=== PATIENT | female | born 1970 | race Caucasian/White ===

== ENCOUNTER → 2016-09-06 | Outpatient (CLI) | payer OTHER ==
[2016-09-06 13:22] LABS: CHCM 32.6; HCT 41.1 % (34.0-46.0); HDW 2.28; HGB 13.9 gm/dL (11.4-16.0); MCH 30.2 pg (25.0-35.0); MCHC 33.7 g/dL (31.0-37.0); MCV 89.5 fL (80.0-100.0); Mean Platelet Volume 8.8; WBC 9.9 k/uL (3.8-10.6)
[2016-09-06 13:57] LABS: ALT 31 U/L (9-52); AST 21 U/L (14-36); Alkaline Phosphatase 92 U/L (38-126); Anion Gap 12 mmol/L; Blood Urea Nitrogen 13 mg/dL (7-17); C Reactive Protein 10.5 mg/L (<10.0); Calcium 9.5 mg/dL (8.4-10.2); Carbon Dioxide 25 mmol/L (22-30); Chloride 104 mmol/L (98-107); Cholesterol 200 mg/dL (<200); Glucose 93 mg/dL (74-99); HDL Cholesterol 63 mg/dL (40-60); Magnesium 1.9 mg/dL (1.6-2.3); Non-African American GFR(MDRD) >60 (>60 ml/min/1.73 sqM); Phosphorous 3.9 mg/dL (2.5-4.5); Potassium 5.1 mmol/L (3.5-5.1); Sodium 141 mmol/L (137-145); Total Bilirubin 0.5 mg/dL (0.2-1.3); Total Protein 7.2 g/dL (6.3-8.2); Triglycerides 112 mg/dL (<150)
[2016-09-06 18:36] LABS: Hemoglobin A1C 5.6 % (4.2-6.1)
== END | disposition home or self-care (01) ==
LOC: LABWHC1 12:59
PROVIDERS: ATTEND Internal Medicine Cardiovascular Disease
DX: Z00.00 Encounter for general adult medical examination without abnormal findings (principal); E78.5 Hyperlipidemia, unspecified
CPT/HCPCS: 36415; 80053; 80061; 83036; 83735; 84100; 84439; 84443; 84481; 85027; 86140

== ENCOUNTER → 2016-09-16 | Outpatient (CLI) | payer OTHER ==
--- NOTE | 2016-09-16 15:53 | US ---
EXAMINATION TYPE: US venous doppler duplex LE LT DATE OF EXAM: 09/16/2016 3:44 PM COMPARISON: NONE CLINICAL HISTORY: M79.662 Phlebitis, M79.605 Pain in Leg,. Left leg pain SIDE PERFORMED: Left TECHNIQUE: The lower extremity deep venous system is examined utilizing real time linear array sonog socorro with graded compression, doppler sonography and color-flow sonography. VESSELS IMAGED: External Iliac Vein (EIV) Common Femoral Vein Deep Femoral Vein Greater Saphenous Vein * Femoral Vein Popliteal Vein Small Saphenous Vein * Proximal Calf Veins (* superficial vessels) No popliteal fossa lesion was seen. Left Leg: Negative for DVT, please note PTV's imaged and appeared wnl Results called to Lucita at Dr's office at time of exam IMPRESSION: THIS EXAMINATION IS NEGATIVE FOR DVT WITHIN THE LEFT LEG.
== END ==
LOC: RADUSWWP 15:05
PROVIDERS: ATTEND Orthopaedic Surgery
DX: M79.662 Pain in left lower leg (principal); M79.605 Pain in left leg; M25.562 Pain in left knee; M17.12 Unilateral primary osteoarthritis, left knee

== ENCOUNTER → 2017-01-17 | Outpatient (CLI) | payer OTHER ==
--- NOTE | 2017-01-18 08:28 | MM ---
Reason for exam: screening (asymptomatic). Last mammogram was performed 1 year ago. History: Patient has history of other cancer at age 39 and is nulliparous. Family history of breast cancer in paternal aunt at age 60 and premenopausal breast cancer in paternal grandmother at age 40. Benign left mammotome panel of the left breast, November 16, 2011. Took hormonal contraceptives for 16 years 6 months beginning at age 19. Physical Findings: A clinical breast exam by your physician is recommended on an annual basis and results should be correlated with mammographic findings. MG 3D Screening Mammo W/Cad Bilateral CC and MLO view(s) were taken. Prior study comparison: January 05, 2016, bilateral MG 3d screening mammo w/cad. December 30, 2014, bilateral MG screening mammo w CAD. There are scattered fibroglandular densities. Focal asymmetry middle right breast on MLO view, 8.3cm from nipple. ASSESSMENT: Incomplete: need additional imaging evaluation, BI-RAD 0 RECOMMENDATION: Special view mammogram of the right breast. If lesion persists on supplemental views, image directed ultrasound is recommended. [facility] will attempt to contact patient to return for supplemental views and ultrasound if indicated.
== END | disposition home or self-care (01) ==
LOC: RADMAMWWP 07:58
PROVIDERS: ATTEND Obstetrics & Gynecology
DX: Z12.31 Encounter for screening mammogram for malignant neoplasm of breast (principal); Z80.3 Family history of malignant neoplasm of breast
CPT/HCPCS: 77063; G0202

== ENCOUNTER → 2017-01-31 | Outpatient (CLI) | payer OTHER ==
--- NOTE | 2017-02-01 07:07 | MM ---
Reason for exam: additional evaluation requested from abnormal screening. Last mammogram was performed less than 1 month ago. History: Patient has history of other cancer at age 39 and is nulliparous. Family history of breast cancer in paternal aunt at age 60 and premenopausal breast cancer in paternal grandmother at age 40. Benign left mammotome panel of the left breast, November 16, 2011. Took hormonal contraceptives for 16 years 6 months beginning at age 19. Physical Findings: Nurse did not find any significant physical abnormalities on exam. MG 3D Work Up W/Cad RT CC and MLO view(s) were taken of the right breast. Prior study comparison: January 17, 2017, bilateral MG 3d screening mammo w/cad. January 05, 2016, bilateral MG 3d screening mammo w/cad. The breast tissue is almost entirely fat. There is no discrete abnormality, including area of concern. These results were verbally communicated with the patient and result sheet given to the patient on 01/31/17. ASSESSMENT: Benign, BI-RAD 2 RECOMMENDATION: Routine screening mammogram of both breasts in 1 year.
== END | disposition home or self-care (01) ==
LOC: RADMAMWWP 08:56
PROVIDERS: ATTEND Obstetrics & Gynecology
DX: R92.8 Other abnormal and inconclusive findings on diagnostic imaging of breast (principal)
CPT/HCPCS: G0206; G0279

== ENCOUNTER 2017-02-06 18:20 | Emergency (ER) | payer OTHER ==
[2017-02-06 18:31] VITALS: BP 150/72; PULSE 84; RESP 17; TEMP 97
--- NOTE | 2017-02-06 19:39 | XR ---
Exam: Right knee complete. TECHNIQUE: 4 views right knee were obtained. HISTORY: Fall with medial knee pain. FINDINGS: No acute fracture or subluxation is identified. Marginal osteophyte formation is identified in the me dial compartment as well as arising from the superior aspect of the patella. There is no joint effusi on. Soft tissue structures are unremarkable. IMPRESSION: No acute abnormalities identified.
--- NOTE | 2017-02-06 19:52 | ED ---
Lower Extremity Injury HPI - General Chief Complaint: Extremity Injury, Lower Stated Complaint: IHS, fall Time Seen by Provider: 02/06/17 19:16 Source: patient, family Mode of arrival: ambulatory Limitations: physical limitation - History of Present Illness Initial Comments: 46-year-old female patient possessed emergency department today for evaluation of right knee pain. Patient states that she was at work today around 5:30 when she tripped on a mat and fell landing on her right knee. The patient states that she has had significant pain since and has had use crutches because it hurts to walk. Patient states that she did fall on her shoulder as well however she is able to move it without any difficulties and is not having pain. Patient denies hitting her head or losing consciousness. She denies any numbness or tingling to her lower leg. Denies previous injury to the leg. Patient denies any headache, neck pain, back pain, chest pain, shortness of breath, dizziness, weakness, abdominal pain, nausea, vomiting, or difficulties with bowel movements or urination. - Related Data Home Medications Medication Instructions Recorded Confirmed ALPRAZolam [Xanax] 0.5 mg PO BID PRN 08/19/14 02/28/16 Albuterol Inhaler [Ventolin 1 - 2 puff INHALATION Q6HR PRN 08/19/14 02/28/16 Inhaler] Cetirizine HCl [Zyrtec] 10 mg PO DAILY 08/19/14 02/28/16 EPINEPHrine (Auto Inject) [Epipen] 0.3 mg IM ONCE PRN 08/19/14 02/28/16 Ergocalciferol [Vitamin D2 50,000 unit PO Q7D 08/19/14 02/28/16 (DRISDOL)] Fluocinonide 0.05% [Lidex 0.05% 15 applic TOPICAL DAILY 08/19/14 02/28/16 cream] Montelukast [Singulair] 10 mg PO DAILY 08/19/14 02/28/16 Sertraline HCl [Zoloft] 50 mg PO DAILY 08/19/14 02/28/16 Vitamin B Complex 1 each PO DIRECTED 08/19/14 02/28/16 Previous Rx's Medication Instructions Recorded Dicyclomine HCl [Bentyl] 20 mg PO QID #30 tab 08/19/14 Ondansetron Odt [Zofran ODT] 4 mg PO Q8HR PRN #30 tab 08/19/14 Cephalexin [Keflex] 500 mg PO Q6HR #28 cap 02/28/16 Allergies Allergy/AdvReac Type Severity Reaction Status Date / Time bacitracin Allergy Unknown Verified 02/06/17 18:31 [From Neosporin ([id number])] bacitracin zinc Allergy Unknown Verified 02/06/17 18:31 [From Neosporin ([id number]-[id number])] neomycin sulfate Allergy Unknown Verified 02/06/17 18:31 [From Neosporin ([id number])] polymyxin B Allergy Unknown Verified 02/06/17 18:31 [From Neosporin ([id number])] tree nut [Nut] Allergy Anaphylaxis Verified 02/06/17 18:31 pseudoephedrine AdvReac Unknown Verified 02/06/17 18:31 Review of Systems ROS Statement: Those systems with pertinent positive or pertinent negative responses have been documented in the HPI. ROS Other: All systems not noted in ROS Statement are negative. Past Medical History Past Medical History: Asthma, Thyroid Disorder Additional Past Medical History / Comment(s): allergies, eczema, PSVT History of Any Multi-Drug Resistant Organisms: None Reported Additional Past Surgical History / Comment(s): bilateral knee arthroscopy, bilateral lasik eye surgery, Past Psychological History: No Psychological Hx Reported Smoking Status: Never smoker Past Alcohol Use History: Occasional Past Drug Use History: None Reported General Exam Limitations: physical limitation General appearance: alert, in no apparent distress Neck exam: Present: normal inspection, full ROM, other (Nontender, no step-off, no deformity to firm midline palpation of the posterior cervical spine. Full range of motion without pain or limitation.). Absent: tenderness, meningismus, lymphadenopathy Respiratory exam: Present: normal lung sounds bilaterally. Absent: respiratory distress, wheezes, rales, rhonchi, stridor Cardiovascular Exam: Present: regular rate, normal rhythm, normal heart sounds. Absent: systolic murmur, diastolic murmur, rubs, gallop, clicks GI/Abdominal exam: Present: soft, normal bowel sounds. Absent: distended, tenderness, guarding, rebound, rigid Extremities exam: Present: full ROM, tenderness (Over the medial and lateral right knee.), normal capillary refill, other (Right knee swelling noted. Ecchymosis to the medial right knee.). Absent: normal inspection, pedal edema, joint swelling, calf tenderness Back exam: Present: normal inspection, other (Nontender, no step-off, no deformity to firm midline palpation of the thoracic and lumbar vertebrae. Full range of motion without pain or limitation.) Neurological exam: Present: alert, oriented X3, CN II-XII intact Psychiatric exam: Present: normal affect, normal mood Skin exam: Present: warm, dry, intact, normal color. Absent: rash Course Vital Signs 02/06/17 18:24 Temperature 97.0 F L Pulse Rate 84 Respiratory 17 Rate Blood Pressure 150/72 O2 Sat by Pulse 98 Oximetry Medical Decision Making - Medical Decision Making 46 old female patient was sent for evaluation of right knee pain after a fall today. X-ray was obtained and showed no acute osseous abnormalities. Patient does have significant pain with walking so she will be placed in a knee immobilizer and instructed to follow-up with orthopedic physician for reevaluation. He is instructed to ice, rest, and elevate the extremity. Instructed sick IV Zofran and Tylenol for pain control. Patient instructed to follow up with her primary care physician for recheck in 1-2 days. Instructed to return here immediately for any new, worsening, or concerning symptoms. Patient verbalizes understanding and agrees with this plan. - Radiology Data Radiology results: report reviewed, image reviewed 4 views of the right knee were obtained and showed no fracture or subluxation. Marginal osteophyte formation is identified in the medial compartment as well as arising from the superior aspect of the patella. There is no joint effusion. Soft tissue structures are unremarkable. Impression by Dr. Lee shows no acute abnormalities. Disposition Clinical Impression: Right knee sprain Disposition: HOME SELF-CARE Condition: Good Instructions: Knee Sprain (ED), Contusion in Adults (ED) Additional Instructions: Rest, ice, elevate the extremity. Take Tylenol or Motrin for pain control. Wear knee immobilizer until follow-up with the orthopedic physician. Return here immediately for any new, worsening, or concerning symptoms. Referrals: Raquel Haas MD [Primary Care Provider] - 1-2 days Time of Disposition: 19:51
== END 2017-02-06 20:10 | disposition home or self-care (01) ==
LOC: EC 18:20
DX: S83.91XA Sprain of unspecified site of right knee, initial encounter (principal); J45.909 Unspecified asthma, uncomplicated; E07.9 Disorder of thyroid, unspecified; Z79.899 Other long term (current) drug therapy; Z88.1 Allergy status to other antibiotic agents; Z88.8 Allergy status to other drugs, medicaments and biological substances; Z91.018 Allergy to other foods; W01.0XXA Fall on same level from slipping, tripping and stumbling without subsequent striking against object, initial encounter; Y99.0 Civilian activity done for income or pay
CPT/HCPCS: 73562; 99283; L1830

== ENCOUNTER → 2017-02-08 | Outpatient (CLI) | payer OTHER ==
--- NOTE | 2017-02-08 14:31 | CT ---
EXAMINATION TYPE: CT knee RT wo con DATE OF EXAM: 02/08/2017 COMPARISON: Plain film 02/06/2017 HISTORY: Trauma and pain, M 25.561 CT DLP: 289 mGycm Automated exposure control for dose reduction was used. Helical acquisition through the right knee. Three-dimensional reconstructions performed on an [id number] workstation. FINDINGS: Osteoarthritic changes are again noted. There is marginal spurring in the medial compartment grade an d lateral, joint space loss medially and subchondral sclerosis. Spurring also present at the patellof emoral joint. There is a concentric area of low attenuation involving the soft tissues just medial to the medial femoral condyle which may represent joint effusion. Varicosities are noted incidentally. Difficult to exclude ligamentous disruption or meniscal tear. No fracture or dislocation. IMPRESSION: OSTEOARTHRITIS AND ADDITIONAL FINDINGS ABOVE. KNEE MRI WOULD BE OF INCREASED SENSITIVITY AND SPECIFIC ITY.
== END | disposition home or self-care (01) ==
LOC: RADCTMAIN 13:38
PROVIDERS: ATTEND Orthopaedic Surgery
DX: M17.11 Unilateral primary osteoarthritis, right knee (principal)

== ENCOUNTER 2017-07-14 11:21 | Emergency (ER) | payer OTHER ==
[2017-07-14 11:29] VITALS: RESP 18
--- NOTE | 2017-07-14 12:14 | ED ---
General Adult HPI - General Chief complaint: Recheck/Abnormal Lab/Rx Stated complaint: Chest pain Time Seen by Provider: 07/14/17 11:34 Source: patient, family, RN notes reviewed Mode of arrival: wheelchair Limitations: no limitations - History of Present Illness Initial comments: 46-year-old female presenting with a variety of complaints. Initial complaint was lightheadedness. Patient was at work, she felt lightheaded, thought it was either her blood pressure or her blood sugar. She did check her blood pressure was elevated in the 160s systolic. She normally has no hypertension or elevated blood pressure. She checked her blood sugar is in the mid 90s patient does admit that she did not eat breakfast today. She states she overall been not feeling right. She develops some mid scapular atraumatic back pain. This was minimal at the time my evaluation. Denied any central chest pain or pressure. No known history of coronary artery disease. She does have history of SVT, she denied palpitations. Also complains of some mild nausea associated with these symptoms. - Related Data Home Medications Medication Instructions Recorded Confirmed ALPRAZolam [Xanax] 0.5 mg PO BID PRN 08/19/14 07/14/17 Albuterol Inhaler [Ventolin 1 - 2 puff INHALATION RT-QID PRN 08/19/14 07/14/17 Inhaler] Cetirizine HCl [Zyrtec] 10 mg PO HS 08/19/14 07/14/17 EPINEPHrine (Auto Inject) [Epipen] 0.3 mg IM ONCE PRN 08/19/14 07/14/17 Ergocalciferol [Vitamin D2 50,000 unit PO WE 08/19/14 07/14/17 (DRISDOL)] Montelukast [Singulair] 10 mg PO HS 08/19/14 07/14/17 Sertraline HCl [Zoloft] 50 mg PO HS 08/19/14 07/14/17 Famotidine [Pepcid AC] 10 mg PO DAILY 07/14/17 07/14/17 Ibuprofen [Motrin Ib] 200 - 400 mg PO Q6H PRN 07/14/17 07/14/17 Levothyroxine Sodium [Synthroid] 25 mcg PO SUTUWETHSA 07/14/17 07/14/17 Levothyroxine Sodium [Synthroid] 50 mcg PO MOFR 07/14/17 07/14/17 Allergies Allergy/AdvReac Type Severity Reaction Status Date / Time bacitracin Allergy Rash/Hives Verified 07/14/17 12:20 [From Neosporin ([id number])] bacitracin zinc Allergy Rash/Hives Verified 07/14/17 12:20 [From Neosporin ([id number])] neomycin sulfate Allergy Rash/Hives Verified 07/14/17 12:20 [From Neosporin ([id number]-ryq-ooglp)] polymyxin B Allergy Rash/Hives Verified 07/14/17 12:20 [From Neosporin (hib-wnx-[id number])] tree nut [Nut] Allergy Anaphylaxis Verified 07/14/17 12:20 pseudoephedrine AdvReac Rapid Verified 07/14/17 12:20 Heart Rate Review of Systems ROS Statement: Those systems with pertinent positive or pertinent negative responses have been documented in the HPI. ROS Other: All systems not noted in ROS Statement are negative. Past Medical History Past Medical History: Asthma, Supraventricular Tachycardia (SVT), Thyroid Disorder Additional Past Medical History / Comment(s): allergies, eczema, PSVT History of Any Multi-Drug Resistant Organisms: None Reported Additional Past Surgical History / Comment(s): bilateral knee arthroscopy, bilateral lasik eye surgery, Past Psychological History: No Psychological Hx Reported Smoking Status: Never smoker Past Alcohol Use History: Occasional Past Drug Use History: None Reported General Exam Limitations: no limitations General appearance: alert, in no apparent distress Head exam: Present: atraumatic, normocephalic Eye exam: Present: normal appearance, PERRL ENT exam: Present: normal exam Neck exam: Present: normal inspection. Absent: tenderness, meningismus Respiratory exam: Present: normal lung sounds bilaterally. Absent: respiratory distress, wheezes Cardiovascular Exam: Present: regular rate, normal rhythm. Absent: rubs GI/Abdominal exam: Present: soft. Absent: distended, tenderness Extremities exam: Present: normal inspection, normal capillary refill. Absent: pedal edema Back exam: Present: normal inspection. Absent: full ROM Neurological exam: Present: alert, oriented X3, CN II-XII intact. Absent: motor sensory deficit Psychiatric exam: Present: normal affect, normal mood Skin exam: Present: warm, dry, intact. Absent: cyanosis, diaphoretic Course Vital Signs 07/14/17 07/14/17 07/14/17 11:27 12:41 14:06 Temperature 98 F Pulse Rate 83 86 81 Respiratory 18 18 18 Rate Blood Pressure 186/100 165/86 164/87 O2 Sat by Pulse 99 98 96 Oximetry - Reevaluation(s) Reevaluation #1: 07/14/17 12:13 1210, patient developed some changing back pain and chest tightness. Repeat EKG obtained. EKG Findings - EKG Comments: EKG Findings:: EKG shows normal sinus rhythm with sinus arrhythmia, ventricular rate 73, NC interval 140, castration 80, QTC 438, no ST segment elevation there is T-wave inversion in lead 3. Repeat EKG during worsening pain shows sinus rhythm ventricular rate 65, NC interval 126, QRS duration 80, QTc 418, no signs of acute ischemia. EKG obtained at 1211 Medical Decision Making - Medical Decision Making 46-year-old female presenting with chief complaint of not feeling well and mid thoracic back pain which was nontraumatic. Patient was concerned about elevated blood pressure. No vomiting, she did have some mild nausea. EKG is obtained, nonischemic. This is repeated one patient had worsening symptoms and it was unchanged. Laboratory studies revealed mild elevation in white blood cell count 12.5, hemoglobin stable at 14.6. Troponin and d-dimer are negative. Electrolytes within normal limits. Lipase is elevated, this is consistent with the patient's nausea and mid back pain. Ultrasound is obtained for concerns of gallstone pancreatitis, this is negative for acute cholecystitis, negative for gallstones within the gallbladder, common bile duct is not visualized. Patient is offered observation for GI consult. She prefers to be discharged home and will return with worsening symptoms. She will follow-up with her primary care physician on Monday for repeat x-ray testing. She was not a alcoholic, no history of recent alcohol use or abuse. She is not vomiting in the emergency department. She has no epigastric pain. She is informed that other causes of pancreatitis have not been evaluated, she did not receive CT. She will attention to her symptoms and return with any change or worsening symptoms. 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 - Lab Data Result diagrams: 07/14/17 12:34 07/14/17 12:34 Lab Results 07/14/17 07/14/17 07/14/17 Range/Units 12:26 12:34 12:34 WBC 12.5 H (3.8-10.6) k/uL RBC 5.15 (3.80-5.40) m/uL Hgb 14.6 (11.4-16.0) gm/dL Hct 48.2 H (34.0-46.0) % MCV 93.6 (80.0-100.0) fL MCH 28.3 (25.0-35.0) pg MCHC 30.2 L (31.0-37.0) g/dL RDW 12.8 (11.5-15.5) % Plt Count 275 (150-450) k/uL Neutrophils % 74 % Lymphocytes % 18 % Monocytes % 5 % Eosinophils % 2 % Basophils % 1 % Neutrophils # 9.2 H (1.3-7.7) k/uL Lymphocytes # 2.2 (1.0-4.8) k/uL Monocytes # 0.7 (0-1.0) k/uL Eosinophils # 0.2 (0-0.7) k/uL Basophils # 0.1 (0-0.2) k/uL PT (9.0-12.0) sec INR (<1.2) APTT (22.0-30.0) sec D-Dimer (<0.60) mg/L FEU Sodium (137-145) mmol/L Potassium (3.5-5.1) mmol/L Chloride (98-107) mmol/L Carbon Dioxide (22-30) mmol/L Anion Gap mmol/L BUN (7-17) mg/dL Creatinine (0.52-1.04) mg/dL Est GFR (MDRD) Af Amer (>60 ml/min/1.73 sqM) Est GFR (MDRD) Non-Af (>60 ml/min/1.73 sqM) Glucose (74-99) mg/dL Calcium (8.4-10.2) mg/dL Magnesium (1.6-2.3) mg/dL Total Bilirubin (0.2-1.3) mg/dL AST (14-36) U/L ALT (9-52) U/L Alkaline Phosphatase (38-126) U/L Total Creatine Kinase 107 (30-135) U/L CK-MB (CK-2) 1.1 (0.0-2.4) ng/mL CK-MB (CK-2) Rel Index 1.0 Troponin I <0.012 (0.000-0.034) ng/mL NT-Pro-B Natriuret Pep pg/mL Total Protein (6.3-8.2) g/dL Albumin (3.5-5.0) g/dL Lipase (23-300) U/L Urine HCG, Qual Not Detected (Not Detectd) 07/14/17 07/14/17 07/14/17 Range/Units 12:34 12:34 12:34 WBC (3.8-10.6) k/uL RBC (3.80-5.40) m/uL Hgb (11.4-16.0) gm/dL Hct (34.0-46.0) % MCV (80.0-100.0) fL MCH (25.0-35.0) pg MCHC (31.0-37.0) g/dL RDW (11.5-15.5) % Plt Count (150-450) k/uL Neutrophils % % Lymphocytes % % Monocytes % % Eosinophils % % Basophils % % Neutrophils # (1.3-7.7) k/uL Lymphocytes # (1.0-4.8) k/uL Monocytes # (0-1.0) k/uL Eosinophils # (0-0.7) k/uL Basophils # (0-0.2) k/uL PT 9.6 (9.0-12.0) sec INR 1.0 (<1.2) APTT 23.9 (22.0-30.0) sec D-Dimer 0.20 (<0.60) mg/L FEU Sodium 140 (137-145) mmol/L Potassium 4.2 (3.5-5.1) mmol/L Chloride 105 (98-107) mmol/L Carbon Dioxide 24 (22-30) mmol/L Anion Gap 11 mmol/L BUN 14 (7-17) mg/dL Creatinine 0.74 (0.52-1.04) mg/dL Est GFR (MDRD) Af Amer >60 (>60 ml/min/1.73 sqM) Est GFR (MDRD) Non-Af >60 (>60 ml/min/1.73 sqM) Glucose 104 H (74-99) mg/dL Calcium 10.0 (8.4-10.2) mg/dL Magnesium 2.1 (1.6-2.3) mg/dL Total Bilirubin 0.4 (0.2-1.3) mg/dL AST 21 (14-36) U/L ALT 28 (9-52) U/L Alkaline Phosphatase 112 (38-126) U/L Total Creatine Kinase (30-135) U/L CK-MB (CK-2) (0.0-2.4) ng/mL CK-MB (CK-2) Rel Index Troponin I (0.000-0.034) ng/mL NT-Pro-B Natriuret Pep 158 pg/mL Total Protein 7.9 (6.3-8.2) g/dL Albumin 4.6 (3.5-5.0) g/dL Lipase 728 H (23-300) U/L Urine HCG, Qual (Not Detectd) Disposition Clinical Impression: Pancreatitis Disposition: HOME SELF-CARE Condition: Good Instructions: Pancreatitis (ED) Referrals: Raquel Haas MD [Primary Care Provider] - 1-2 days Kesha Rodriguez MD [STAFF PHYSICIAN] - 1-2 days Time of Disposition: 15:24
[2017-07-14 12:54] LABS: Basophils # (A) 0.1 k/uL (0-0.2); Basophils % (A) 1 %; Eosinophils # (A) 0.2 k/uL (0-0.7); Eosinophils % (A) 2 %; HCT 48.2 % (34.0-46.0); HGB 14.6 gm/dL (11.4-16.0); Lymphocytes # (A) 2.2 k/uL (1.0-4.8); Lymphocytes % (A) 18 %; MCH 28.3 pg (25.0-35.0); MCHC 30.2 g/dL (31.0-37.0); MCV 93.6 fL (80.0-100.0); Mean Platelet Volume 9.2; Monocytes # (A) 0.7 k/uL (0-1.0); Monocytes % (A) 5 %; Neutrophils # (A) 9.2 k/uL (1.3-7.7); Neutrophils % (A) 74 %; Platelet Count 275 k/uL (150-450); RBC 5.15 m/uL (3.80-5.40); RDW 12.8 % (11.5-15.5); WBC 12.5 k/uL (3.8-10.6)
[2017-07-14 12:57] LABS: D-Dimer 0.2 mg/L FEU (<0.60)
--- NOTE | 2017-07-14 12:57 | XR ---
EXAMINATION TYPE: XR chest 2V DATE OF EXAM: 07/14/2017 COMPARISON: NONE HISTORY: Chest pain TECHNIQUE: Frontal and lateral views of the chest are obtained. FINDINGS: There is no focal air space opacity. No evidence for pneumothorax. No pleural effusion. The cardiac silhouette size is within normal limits. The osseous structures are grossly intact. IMPRESSION: 1. No acute cardiopulmonary process.
[2017-07-14 13:02] LABS: Partial Thromboplastin Time 23.9 sec (22.0-30.0); Prothrombin Time 9.6 sec (9.0-12.0)
[2017-07-14 13:06] LABS: ALT 28 U/L (9-52); AST 21 U/L (14-36); Albumin 4.6 g/dL (3.5-5.0); Alkaline Phosphatase 112 U/L (38-126); Anion Gap 11 mmol/L; Blood Urea Nitrogen 14 mg/dL (7-17); Carbon Dioxide 24 mmol/L (22-30); Chloride 105 mmol/L (98-107); Glucose 104 mg/dL (74-99); Lipase 728 U/L (23-300); Magnesium 2.1 mg/dL (1.6-2.3); Potassium 4.2 mmol/L (3.5-5.1); Sodium 140 mmol/L (137-145); Total Bilirubin 0.4 mg/dL (0.2-1.3); Total Protein 7.9 g/dL (6.3-8.2)
[2017-07-14 13:16] LABS: Creatine Kinase 107 U/L (30-135)
[2017-07-14 13:18] LABS: Creatine Kinase MB 1.1 ng/mL (0.0-2.4); Troponin I <0.012 ng/mL (0.000-0.034)
--- NOTE | 2017-07-14 14:52 | US ---
EXAMINATION TYPE: US gallbladder DATE OF EXAM: 07/14/2017 COMPARISON: NONE CLINICAL HISTORY: Pain. Pain, HTN, not NPO EXAM MEASUREMENTS: Liver Length: 15.1 cm Gallbladder Wall: 0.3 cm CHD: 0.3 cm Right Kidney: 9.3 x 4.7 x 5.4 cm Limited exam due to patient body habitus Pancreas: Appears echogenic Liver: wnl Gallbladder: wnl, fold seen Evidence for sonographic Wiley's sign: neg CBD: Obscured by overlying bowel gas CHD: wnl Right Kidney: wnl IMPRESSION: No significant abnormality appreciated.
[2017-07-14 15:46] VITALS: BP 129/87; PULSE 79; TEMP 97.8
== END 2017-07-14 15:40 | disposition home or self-care (01) ==
LOC: EC 11:21
DX: K85.90 Acute pancreatitis without necrosis or infection, unspecified (principal); J45.909 Unspecified asthma, uncomplicated; E07.9 Disorder of thyroid, unspecified; Z79.899 Other long term (current) drug therapy; Z88.1 Allergy status to other antibiotic agents; Z91.018 Allergy to other foods; Z88.8 Allergy status to other drugs, medicaments and biological substances
CPT/HCPCS: 36415; 71046; 76705; 80053; 81025; 82550; 82553; 83690; 83735; 83880; 84484; 85025; 85379; 85610; 85730; 87077; 87086; 87186; 93005; 99285

== ENCOUNTER → 2017-08-04 | Outpatient (CLI) | payer OTHER ==
[2017-08-04 11:07] LABS: HGB 13.6 gm/dL (11.4-16.0); MCH 28.5 pg (25.0-35.0); MCHC 31.5 g/dL (31.0-37.0); MCV 90.3 fL (80.0-100.0); Mean Platelet Volume 9.1; Platelet Count 267 k/uL (150-450); RBC 4.76 m/uL (3.80-5.40); RDW 13.1 % (11.5-15.5); WBC 7.2 k/uL (3.8-10.6)
[2017-08-04 11:28] LABS: ALT 20 U/L (9-52); AST 18 U/L (14-36); Alkaline Phosphatase 74 U/L (38-126); Anion Gap 6 mmol/L; Blood Urea Nitrogen 14 mg/dL (7-17); Calcium 9.4 mg/dL (8.4-10.2); Carbon Dioxide 27 mmol/L (22-30); Chloride 105 mmol/L (98-107); Cholesterol 186 mg/dL (<200); Glucose 95 mg/dL (74-99); HDL Cholesterol 64 mg/dL (40-60); LDL Cholesterol,Calculated 103 mg/dL (0-99); Phosphorus 3.1 mg/dL (2.5-4.5); Potassium 4.8 mmol/L (3.5-5.1); Sodium 138 mmol/L (137-145); Total Bilirubin 0.3 mg/dL (0.2-1.3); Triglycerides 94 mg/dL (<150)
[2017-08-04 11:43] LABS: T4, Free (Free Thyroxine) 1.07 ng/dL (0.78-2.19)
[2017-08-04 21:43] LABS: Hemoglobin A1C 5.4 % (4.0-6.0)
== END | disposition home or self-care (01) ==
LOC: LABWHC1 10:39
PROVIDERS: ATTEND Internal Medicine Cardiovascular Disease
DX: I10 Essential (primary) hypertension (principal); E78.5 Hyperlipidemia, unspecified; E03.9 Hypothyroidism, unspecified; E11.9 Type 2 diabetes mellitus without complications
CPT/HCPCS: 36415; 80053; 80061; 83036; 83735; 84100; 84439; 84443; 84481; 85027; 86141

== ENCOUNTER 2017-09-10 18:32 | Emergency (ER) | payer OTHER ==
[2017-09-10] MEDS ORDERED: SODIUM CHLORIDE 0.9% 1,000 ML IV STA (20:01)
[2017-09-10 20:51] LABS: Basophils % (A) 0 %; Eosinophils # (A) 0.2 k/uL (0-0.7); Eosinophils % (A) 1 %; HCT 43.1 % (34.0-46.0); HGB 14.3 gm/dL (11.4-16.0); Lymphocytes # (A) 2.8 k/uL (1.0-4.8); Lymphocytes % (A) 21 %; MCH 29.5 pg (25.0-35.0); MCHC 33.2 g/dL (31.0-37.0); MCV 88.7 fL (80.0-100.0); Monocytes # (A) 0.9 k/uL (0-1.0); Monocytes % (A) 7 %; Neutrophils # (A) 9.3 k/uL (1.3-7.7); Neutrophils % (A) 70 %; Platelet Count 245 k/uL (150-450); RBC 4.86 m/uL (3.80-5.40); RDW 13.1 % (11.5-15.5); WBC 13.4 k/uL (3.8-10.6)
[2017-09-10 21:05] LABS: Partial Thromboplastin Time 23.9 sec (22.0-30.0); Prothrombin Time 9.8 sec (9.0-12.0)
[2017-09-10 21:07] LABS: ALT 26 U/L (9-52); AST 21 U/L (14-36); Albumin 4.3 g/dL (3.5-5.0); Alkaline Phosphatase 98 U/L (38-126); Amylase 58 U/L (30-110); Anion Gap 15 mmol/L; Blood Urea Nitrogen 12 mg/dL (7-17); Calcium 10.1 mg/dL (8.4-10.2); Carbon Dioxide 22 mmol/L (22-30); Chloride 104 mmol/L (98-107); Glucose 95 mg/dL (74-99); Lipase 128 U/L (23-300); Potassium 4.3 mmol/L (3.5-5.1); Sodium 141 mmol/L (137-145); Total Bilirubin 0.6 mg/dL (0.2-1.3); Total Protein 7.6 g/dL (6.3-8.2)
[2017-09-10] MEDS ORDERED: RX INFO: IV CONTRAST WAS GIVEN 1 EACH MISC MISCELLANE PRN (21:19)
--- NOTE | 2017-09-10 22:03 | ED ---
Abdominal Pain HPI - General Chief Complaint: Abdominal Pain Stated Complaint: fever, abd pain, chills Time Seen by Provider: 09/10/17 20:01 Source: patient, RN notes reviewed Mode of arrival: ambulatory Limitations: no limitations - History of Present Illness Initial Comments: This a 47-year-old female presents emergency Department chief complaint abdominal pain. Patient states she's been having ongoing issues. She states she seen a here a few months ago by the time she got she was having a heart attack though they found her lipase to be elevated. Patient states that she followed up. Do a repeat ultrasound and a HIDA scan. Insurance would not approve other ultrasound slightly recommended CT. CT was scheduled for next Monday with pain worsened today. She states that she notices when she starts eating certain foods if symptoms worsen. Patient went to chills no fever. Denies any chest pain or shortness of breath. She's had some diarrhea at times. No dysuria hematuria. - Related Data Home Medications Medication Instructions Recorded Confirmed ALPRAZolam [Xanax] 0.5 mg PO BID PRN 08/19/14 07/14/17 Albuterol Inhaler [Ventolin 1 - 2 puff INHALATION RT-QID PRN 08/19/14 07/14/17 Inhaler] Cetirizine HCl [Zyrtec] 10 mg PO HS 08/19/14 07/14/17 EPINEPHrine (Auto Inject) [Epipen] 0.3 mg IM ONCE PRN 08/19/14 07/14/17 Ergocalciferol [Vitamin D2 50,000 unit PO WE 08/19/14 07/14/17 (DRISDOL)] Montelukast [Singulair] 10 mg PO HS 08/19/14 07/14/17 Sertraline HCl [Zoloft] 50 mg PO HS 08/19/14 07/14/17 Famotidine [Pepcid AC] 10 mg PO DAILY 07/14/17 07/14/17 Ibuprofen [Motrin Ib] 200 - 400 mg PO Q6H PRN 07/14/17 07/14/17 Levothyroxine Sodium [Synthroid] 25 mcg PO SUTUWETHSA 07/14/17 07/14/17 Levothyroxine Sodium [Synthroid] 50 mcg PO MOFR 02/09/18 02/09/18 Previous Rx's Medication Instructions Recorded Ondansetron Odt [Zofran Odt] 4 mg PO Q8HR PRN #10 tab 09/10/17 Allergies Allergy/AdvReac Type Severity Reaction Status Date / Time almond Allergy Anaphylaxis Verified 09/10/17 18:45 bacitracin Allergy Rash/Hives Verified 09/10/17 18:45 [From Neosporin ([id number])] bacitracin zinc Allergy Rash/Hives Verified 09/10/17 18:45 [From Neosporin ([id number])] neomycin sulfate Allergy Rash/Hives Verified 09/10/17 18:45 [From Neosporin ([id number])] peanut Allergy Unknown Verified 09/10/17 18:45 polymyxin B Allergy Rash/Hives Verified 09/10/17 18:45 [From Neosporin ([id number])] tree nut [Nut] Allergy Anaphylaxis Verified 09/10/17 18:45 pseudoephedrine AdvReac Rapid Verified 09/10/17 18:45 Heart Rate Review of Systems ROS Statement: Those systems with pertinent positive or pertinent negative responses have been documented in the HPI. ROS Other: All systems not noted in ROS Statement are negative. Past Medical History Past Medical History: Asthma, Supraventricular Tachycardia (SVT), Thyroid Disorder Additional Past Medical History / Comment(s): allergies, eczema, PSVT History of Any Multi-Drug Resistant Organisms: ESBL Date of last positivie culture/infection: 07/14/17 MDRO Source:: ESBL Past Surgical History: No Surgical Hx Reported Additional Past Surgical History / Comment(s): bilateral knee arthroscopy, bilateral lasik eye surgery, Past Psychological History: Anxiety Smoking Status: Never smoker Past Alcohol Use History: None Reported Past Drug Use History: None Reported General Exam Limitations: no limitations General appearance: alert, in no apparent distress Head exam: Present: atraumatic, normocephalic, normal inspection Respiratory exam: Present: normal lung sounds bilaterally. Absent: respiratory distress, wheezes, rales, rhonchi, stridor Cardiovascular Exam: Present: regular rate, normal rhythm, normal heart sounds. Absent: systolic murmur, diastolic murmur, rubs, gallop, clicks GI/Abdominal exam: Present: soft, tenderness (Right upper quadrant tenderness), normal bowel sounds. Absent: distended, guarding, rebound, rigid Back exam: Absent: CVA tenderness (R), CVA tenderness (L) Course Vital Signs 09/10/17 09/10/17 09/10/17 18:40 21:57 22:33 Temperature 98.6 F Pulse Rate 88 74 74 Respiratory 18 17 18 Rate Blood Pressure 153/73 132/74 120/58 O2 Sat by Pulse 97 96 96 Oximetry Medical Decision Making - Medical Decision Making 47-year-old female presented emergency department for recurrent abdominal pain, not feeling well. Patient most likely has a dysfunctional gallbladder. Patient lab work essentially unremarkable CT was performed no evidence of active quadrant disease. Patient is advised to follow-up with surgery will be discharged Zofran. Patient was offered pain medication and she declines. - Lab Data Result diagrams: 09/10/17 20:05 09/10/17 20:05 Lab Results 09/10/17 09/10/17 09/10/17 Range/Units 20:05 20:05 20:05 WBC 13.4 H (3.8-10.6) k/uL RBC 4.86 (3.80-5.40) m/uL Hgb 14.3 (11.4-16.0) gm/dL Hct 43.1 (34.0-46.0) % MCV 88.7 (80.0-100.0) fL MCH 29.5 (25.0-35.0) pg MCHC 33.2 (31.0-37.0) g/dL RDW 13.1 (11.5-15.5) % Plt Count 245 (150-450) k/uL Neutrophils % 70 % Lymphocytes % 21 % Monocytes % 7 % Eosinophils % 1 % Basophils % 0 % Neutrophils # 9.3 H (1.3-7.7) k/uL Lymphocytes # 2.8 (1.0-4.8) k/uL Monocytes # 0.9 (0-1.0) k/uL Eosinophils # 0.2 (0-0.7) k/uL Basophils # 0.0 (0-0.2) k/uL PT (9.0-12.0) sec INR (<1.2) APTT (22.0-30.0) sec Sodium 141 (137-145) mmol/L Potassium 4.3 (3.5-5.1) mmol/L Chloride 104 (98-107) mmol/L Carbon Dioxide 22 (22-30) mmol/L Anion Gap 15 mmol/L BUN 12 (7-17) mg/dL Creatinine 0.60 (0.52-1.04) mg/dL Est GFR (CKD-EPI)AfAm >90 (>60 ml/min/1.73 sqM) Est GFR (CKD-EPI)NonAf >90 (>60 ml/min/1.73 sqM) Glucose 95 (74-99) mg/dL Plasma Lactic Acid Ted 0.7 (0.7-2.0) mmol/L Calcium 10.1 (8.4-10.2) mg/dL Total Bilirubin 0.6 (0.2-1.3) mg/dL AST 21 (14-36) U/L ALT 26 (9-52) U/L Alkaline Phosphatase 98 (38-126) U/L Total Protein 7.6 (6.3-8.2) g/dL Albumin 4.3 (3.5-5.0) g/dL Amylase 58 (30-110) U/L Lipase 128 (23-300) U/L Urine Color Urine Appearance (Clear) Urine pH (5.0-8.0) Ur Specific [place] (1.001-1.035) Urine Protein (Negative) Urine Glucose (UA) (Negative) Urine Ketones (Negative) Urine Blood (Negative) Urine Nitrite (Negative) Urine Bilirubin (Negative) Urine Urobilinogen (<2.0) mg/dL Ur Leukocyte Esterase (Negative) Urine RBC (0-5) /hpf Urine WBC (0-5) /hpf Ur Squamous Epith Cells (0-4) /hpf Urine Bacteria (None) /hpf Urine HCG, Qual (Not Detectd) 09/10/17 09/10/17 09/10/17 Range/Units 20:05 22:28 22:30 WBC (3.8-10.6) k/uL RBC (3.80-5.40) m/uL Hgb (11.4-16.0) gm/dL Hct (34.0-46.0) % MCV (80.0-100.0) fL MCH (25.0-35.0) pg MCHC (31.0-37.0) g/dL RDW (11.5-15.5) % Plt Count (150-450) k/uL Neutrophils % % Lymphocytes % % Monocytes % % Eosinophils % % Basophils % % Neutrophils # (1.3-7.7) k/uL Lymphocytes # (1.0-4.8) k/uL Monocytes # (0-1.0) k/uL Eosinophils # (0-0.7) k/uL Basophils # (0-0.2) k/uL PT 9.8 (9.0-12.0) sec INR 1.0 (<1.2) APTT 23.9 (22.0-30.0) sec Sodium (137-145) mmol/L Potassium (3.5-5.1) mmol/L Chloride (98-107) mmol/L Carbon Dioxide (22-30) mmol/L Anion Gap mmol/L BUN (7-17) mg/dL Creatinine (0.52-1.04) mg/dL Est GFR (CKD-EPI)AfAm (>60 ml/min/1.73 sqM) Est GFR (CKD-EPI)NonAf (>60 ml/min/1.73 sqM) Glucose (74-99) mg/dL Plasma Lactic Acid Ted (0.7-2.0) mmol/L Calcium (8.4-10.2) mg/dL Total Bilirubin (0.2-1.3) mg/dL AST (14-36) U/L ALT (9-52) U/L Alkaline Phosphatase (38-126) U/L Total Protein (6.3-8.2) g/dL Albumin (3.5-5.0) g/dL Amylase (30-110) U/L Lipase (23-300) U/L Urine Color Light Yellow Urine Appearance Clear (Clear) Urine pH 5.0 (5.0-8.0) Ur Specific [place] 1.021 (1.001-1.035) Urine Protein Negative (Negative) Urine Glucose (UA) Negative (Negative) Urine Ketones Negative (Negative) Urine Blood Moderate H (Negative) Urine Nitrite Negative (Negative) Urine Bilirubin Negative (Negative) Urine Urobilinogen <2.0 (<2.0) mg/dL Ur Leukocyte Esterase Moderate H (Negative) Urine RBC 1 (0-5) /hpf Urine WBC 4 (0-5) /hpf Ur Squamous Epith Cells <1 (0-4) /hpf Urine Bacteria Rare H (None) /hpf Urine HCG, Qual Not Detected (Not Detectd) Disposition Clinical Impression: Abdominal pain, Gall bladder disease Disposition: HOME SELF-CARE Condition: Stable Instructions: Abdominal Pain (ED) Additional Instructions: Please return to the Emergency Department if symptoms worsen or any other concerns. Prescriptions: Ondansetron Odt [Zofran Odt] 4 mg PO Q8HR PRN #10 tab PRN Reason: Nausea Referrals: Raquel Haas MD [Primary Care Provider] - 1-2 days Samson Murillo DO [Doctor of Osteopathic Medicine] - 1-2 days Time of Disposition: 23:03
[2017-09-10 22:33] VITALS: RESP 18
--- NOTE | 2017-09-10 22:42 | CT ---
EXAMINATION TYPE: CT abdomen pelvis w con DATE OF EXAM: 09/10/2017 COMPARISON: NONE HISTORY: RUQ abd dwyer CT DLP: 2261.30 mGycm Automated exposure control for dose reduction was used. TECHNIQUE: Helical acquisition of images was performed from the lung bases through the pelvis. CONTRAST: Performed without Oral Contrast and with IV Contrast, patient injected with 100 mL of Isovue 300. FINDINGS: Lung bases are clear. There is no pleural effusion. Heart size is normal. There is no pericardial eff usion. Liver spleen pancreas gallbladder appear normal. Bile ducts are not dilated. There is no adrenal mass. Kidneys show satisfactory contrast opacification. There is no hydronephrosi s. Ureters are not dilated. There is no ascites. There is no sign of free air. Appendix appears michael l. I see no intestinal wall thickening. There are no dilated loops. Bladder distends smoothly. There is IUD noted in the uterus. There is a 6 x 4.5 cm cyst on the left adnexal region. There is a 3 x 2 cm cyst in the right adnexal region. There is no sign of a solid pelvic mass. I see no bony destructive process. IMPRESSION: BILATERAL OVARIAN CYSTS AND LARGER ON THE LEFT SIDE. NO SOLID PELVIC MASS SEEN. I DO NOT SEE A CAUSE FOR RIGHT UPPER QUADRANT PAIN. I DO NOT SEE EVIDENCE FOR PANCREATITIS OR CHOLECYSTITIS.
[2017-09-10 22:43] LABS: Appearance,Urine Clear (Clear); Bacteria,Urine Rare /hpf; Bilirubin,Urine Negative (Negative); Blood,Urine Moderate (Negative); Color,Urine Light Yellow; Glucose,Urine (UA) Negative (Negative); Ketones,Urine Negative (Negative); Leukocyte Esterase,Urine Moderate (Negative); Nitrite,Urine Negative (Negative); Protein,Urine Negative (Negative); RBC,Urine 1 /hpf (0-5); Specific Gravity,Urine 1.021 (1.001-1.035); Squamous Epithelial Cell,Urine <1 /hpf (0-4); Urobilinogen,Urine <2.0 mg/dL (<2.0); WBC,Urine 4 /hpf (0-5)
[2017-09-10] MEDS ORDERED: ONDANSETRON ODT 4 MG TAB PO STA (23:01)
[2017-09-10] MEDS ORDERED: ONDANSETRON 4 MG ODT STARTER PACK 2 TAB BTL PO STA (23:02)
[2017-09-10 23:08] VITALS: BP 115/76; PULSE 72; TEMP 98.2
== END 2017-09-10 23:19 | disposition home or self-care (01) ==
LOC: EC 18:32
DX: K82.9 Disease of gallbladder, unspecified (principal); E07.9 Disorder of thyroid, unspecified; F41.9 Anxiety disorder, unspecified; J45.909 Unspecified asthma, uncomplicated; Z88.1 Allergy status to other antibiotic agents; Z88.8 Allergy status to other drugs, medicaments and biological substances; Z91.010 Allergy to peanuts; Z91.018 Allergy to other foods; Z79.899 Other long term (current) drug therapy
CPT/HCPCS: 99284; 96360; 36415; 80053; 82150; 83605; 83690; 85025; 85610; 85730; 81001; 81025; 87040; 74177; S0119; Q9967

== ENCOUNTER → 2017-09-26 | Outpatient (CLI) | payer OTHER ==
--- NOTE | 2017-09-26 15:17 | NM ---
Nuclear medicine hepatobiliary scan. HISTORY: Pain. DOSAGE: The patient received 8 ounces of ensure plus and 4.88 mCi of Technetium 99m Choletec. FINDINGS: There is normal hepatic extraction. The gallbladder is seen by 30 minutes. There is bilia ry to bowel clearance by 30 minutes. Ejection fraction is 95%. IMPRESSION: 1. No evidence to suggest cholecystitis. Ejection fraction is 95% which can be seen with hyperdynamic gallbladder. Correlate clinically.
== END | disposition home or self-care (01) ==
LOC: RADNMMAIN 12:50
PROVIDERS: ATTEND Surgery
DX: R10.9 Unspecified abdominal pain (principal)
CPT/HCPCS: 78226; A9537

== ENCOUNTER 2018-01-12 07:43 | Day surgery (SDC) | payer OTHER ==
[2018-01-05 12:16] VITALS: BMI 42.7
[~2018-01-12 07:43] MED LIST: DEXAMETHASONE SOD PHOSPHATE 10 MG/ML 1 ML VIAL IV ONE; HEPARIN SODIUM,PORCINE 5,000 UNIT/ML 1 ML VIAL SQ ONE; LACTATED RINGERS 1,000 ML IV SCH; MIDAZOLAM 2 MG/2 ML VIAL IV PRN; ONDANSETRON 4 MG/2 ML VIAL IVP ONE; SCOPOLAMINE 1.5MG/72HR PATCH TRANSDERM ONE; fentaNYL (PF) 50 MCG/ML 2 ML AMP IV PRN
[2018-01-12] MEDS ORDERED: LIDOCAINE 1% 20 ML VIAL (10MG/ML) FOR IV START INTRADERMA ONE (08:14)
--- NOTE | 2018-01-12 08:38 | P.GSHP ---
History of Present Illness H&P Date: 01/12/18 Chief Complaint: Biliary hyperkinesia Patient today for elective cholecystectomy. Please refer to recent history and physical. Patient had an episode of pancreatitis and abdominal pain. Ultrasound however was normal. HIDA scan showed an elevated ejection fraction. Still has to modify her diet. She expresses pain. In terms increased with diet high in fat. Past Medical History Past Medical History: Asthma, Supraventricular Tachycardia (SVT), Thyroid Disorder Additional Past Medical History / Comment(s): allergies, eczema, PSVT, CHOLECYSTITIS. IUD INSERTION History of Any Multi-Drug Resistant Organisms: ESBL Date of last positivie culture/infection: 07/14/17 MDRO Source:: ESBL-URINE Past Surgical History: Orthopedic Surgery Additional Past Surgical History / Comment(s): bilateral knee arthroscopy, bilateral lasik eye surgery, Past Anesthesia/Blood Transfusion Reactions: Previous Problems w/ Anesthesia Additional Past Anesthesia/Blood Transfusion Reaction / Comment(s): SLOW TO COME OUT OF ANESTHESIA Smoking Status: Never smoker - Past Family History Mother Family Medical History: Pulmonary Embolus Medications and Allergies Home Medications Medication Instructions Recorded Confirmed Type ALPRAZolam [Xanax] 0.5 mg PO BID PRN 08/19/14 01/12/18 History Albuterol Inhaler [Ventolin 1 - 2 puff INHALATION RT-QID PRN 08/19/14 01/12/18 History Inhaler] Cetirizine HCl [Zyrtec] 10 mg PO HS 08/19/14 01/12/18 History EPINEPHrine (Auto Inject) [Epipen] 0.3 mg IM ONCE PRN 08/19/14 01/12/18 History Ergocalciferol [Vitamin D2 50,000 unit PO WE 08/19/14 01/12/18 History (DRISDOL)] Montelukast [Singulair] 10 mg PO HS 08/19/14 01/12/18 History Sertraline HCl [Zoloft] 50 mg PO HS 08/19/14 01/12/18 History Famotidine [Pepcid AC] 10 mg PO DAILY 07/14/17 01/12/18 History Ibuprofen [Motrin Ib] 200 - 400 mg PO Q6H PRN 07/14/17 01/12/18 History Levothyroxine Sodium [Synthroid] 25 mcg PO SUTUWETHSA 07/14/17 01/12/18 History Levothyroxine Sodium [Synthroid] 50 mcg PO MOFR 07/14/17 01/12/18 History Ondansetron Odt [Zofran Odt] 4 mg PO Q8HR PRN #10 tab 09/10/17 01/12/18 Rx Clobetasol Propionate [Temovate 1 applic TOPICAL DAILY PRN 01/05/18 01/12/18 History 0.05% Oint] Fluocinonide [Lidex .05%] 1 applic TOPICAL DAILY PRN 01/05/18 01/12/18 History Allergies Allergy/AdvReac Type Severity Reaction Status Date / Time almond Allergy Anaphylaxis Verified 01/12/18 08:08 neomycin sulfate Allergy Rash/Hives Verified 01/12/18 08:08 [From Neosporin ([id number])] peanut Allergy Anaphylaxis Verified 01/12/18 08:08 tree nut [Nut] Allergy Anaphylaxis Verified 01/12/18 08:08 pseudoephedrine AdvReac Rapid Verified 01/12/18 08:08 Heart Rate Surgical - Exam Vital Signs Temp Pulse Resp BP Pulse Ox 97.8 F 86 16 114/68 97 01/12/18 08:06 01/12/18 08:06 01/12/18 08:06 01/12/18 08:06 01/12/18 08:06 Physical exam: General: Well-developed, well-nourished HEENT: Normocephalic, sclerae nonicteric Abdomen: Nontender, nondistended Extremities: No edema Neuro: Alert and oriented Assessment and Plan (1) Biliary dyskinesia Narrative/Plan: Will proceed with left Cholecystectomy at this time. Risks of bleeding, infection, bile leak, bile duct injury, retained common bile duct stone, trocar injury, conversion to an open procedure, potential findings of other etiologies for her pain requiring additional procedures, hernia, anesthesia related complications were reviewed. The patient understands and wishes to proceed. Current Visit: Yes Status: Acute Code(s): K82.8 - OTHER SPECIFIED DISEASES OF GALLBLADDER SNOMED Code(s): 370996497
[2018-01-12] MEDS ORDERED: SUCCINYLCHOLINE CHLORIDE 100 MG/5 ML SYR IV ONE (09:05)
[2018-01-12] MEDS ORDERED: LIDOCAINE 1% INJ 10MG/ML (20 ML MDV) ONE (09:05)
[2018-01-12] MEDS ORDERED: diphenhydrAMINE 50 MG/ML 1 ML VIAL ONE (09:05)
[2018-01-12] MEDS ORDERED: ROCURONIUM BROMIDE 10 MG/ML 10 ML VIAL IV ONE (09:05)
[2018-01-12] MEDS ORDERED: KETOROLAC 30 MG/ML 1 ML VIAL ONE (09:05)
[2018-01-12] MEDS ORDERED: PROPOFOL 10 MG/ML 20 ML VIAL IV ONE (09:05)
[2018-01-12] MEDS ORDERED: fentaNYL (PF) 50 MCG/ML 2 ML AMP ONE (09:05)
[2018-01-12] MEDS ORDERED: MIDAZOLAM 2 MG/2 ML VIAL ONE (09:05)
[2018-01-12] MEDS: ceFAZolin IN SWFI 2 GM/20 ML SYRINGE IVP ONE ×2 (09:19→09:30)
[2018-01-12] MEDS ORDERED: BUPIVACAIN-EPI 0.5%-1:200,000 30 ML VIAL SQ ONE ×2 (09:24)
[2018-01-12] MEDS ORDERED: NALOXONE 0.4 MG/ML 1 ML VIAL IV PRN (10:12)
[2018-01-12] MEDS ORDERED: HYDROcodone/APAP 5-325MG 1 EACH TAB PO PRN (10:12)
--- NOTE | 2018-01-12 10:15 | P.OP ---
Date of Procedure: 01/12/18 Procedure(s) Performed: PREOPERATIVE DIAGNOSIS: Biliary hyperkinesia POSTOPERATIVE DIAGNOSIS: Same PROCEDURE: Laparoscopic cholecystectomy SURGEON: Reggie EBL: Minimal see anesthesia record ANESTHESIA: Gen. COMPLICATIONS: None OPERATIVE PROCEDURE: The patient was brought and placed on the operating room table in the supine position. The patient was placed under general anesthesia at that time. The abdomen was prepped and draped in the usual sterile fashion. A small vertical infraumbilical incision was made. The fascia was grasped with the Jorge forceps. The fascia was retracted anteriorly. The Veress needle was advanced into the peritoneal cavity. The saline drop test was unsuccessful. The patient had a very thick abdominal wall and I suspected we were still in the preperitoneal space. I decided to switch to an optical 5 mm trocar entrance. This occurred through one of our 5 mm incision sites. Insufflation took place to 15 mmHg. The umbilical site was inspected and there did not appear to be any penetration through the peritoneum from our Veress needle. A 5 mm trocar was placed there as well as an additional one in the right upper quadrant under visualization. A 12 mm trocar was advanced into the epigastric incision site. The gallbladder was retracted superiorly and laterally. The peritoneum overlying the infundibulum was bluntly dissected. The patient's cystic duct was visualized. The junction between the cystic duct common and hepatic duct was identified. The cystic duct was then divided after placement of 3 12 mm clips on the patient's side and one on the specimen side. The cystic artery was identified and clipped as well. A small vessel was seen along the gallbladder fossa and clipped as well. The gallbladder was then removed from the liver bed using electrocautery. The gallbladder was then removed from the epigastric trocar site with an Endo Catch bag. The gallbladder fossa was irrigated with saline. There was no evidence of any bleeding or biliary drainage seen. The trochars were then removed. The fascia at the 12 millimeter site was closed using a Willie-Breana 0 Vicryl stitch. The skin at all 4 sites was closed using a 4-0 Monocryl stitch. At the end of this procedure the sponge and needle counts were correct. DISPOSITION: Stable to the recovery room
[2018-01-12 10:23] VITALS: TEMP 97.9
[2018-01-12 11:35] VITALS: RESP 18
[2018-01-12 11:50] VITALS: BP 120/76; PULSE 59
== END 2018-01-12 12:23 | disposition home or self-care (01) ==
LOC: OR 07:43
PROVIDERS: ATTEND Surgery
DX: K81.1 Chronic cholecystitis (principal); J45.909 Unspecified asthma, uncomplicated; E07.9 Disorder of thyroid, unspecified; I47.1 Supraventricular tachycardia; F39 Unspecified mood [affective] disorder; Z91.018 Allergy to other foods; Z91.010 Allergy to peanuts; Z88.1 Allergy status to other antibiotic agents; Z88.8 Allergy status to other drugs, medicaments and biological substances; Z79.890 Hormone replacement therapy; Z79.899 Other long term (current) drug therapy; Z97.5 Presence of (intrauterine) contraceptive device
CPT/HCPCS: 47562; 81025; 88304; J2250; J1200; J1644; J1100; J2405; J2001; J3010; J1885; J0330; J2704; J0690

== ENCOUNTER → 2018-01-25 | Outpatient (CLI) | payer OTHER ==
--- NOTE | 2018-01-29 09:54 | MM ---
Reason for exam: screening (asymptomatic). Last mammogram was performed 1 year ago. History: Patient has history of other cancer at age 39 and is nulliparous. Family history of breast cancer in paternal aunt at age 60 and premenopausal breast cancer in paternal grandmother at age 40. Benign left mammotome panel of the left breast, November 16, 2011. Took hormonal contraceptives for 16 years 6 months beginning at age 19. Physical Findings: A clinical breast exam by your physician is recommended on an annual basis and results should be correlated with mammographic findings. MG 3D Screening Mammo W/Cad Bilateral CC and MLO view(s) were taken. Prior study comparison: January 31, 2017, right breast MG 3d work up w/cad RT. January 17, 2017, bilateral MG 3d screening mammo w/cad. The breast tissue is heterogeneously dense. This may lower the sensitivity of mammography. Previous mammotome biopsy in the left breast. There is no discrete abnormality. No significant changes when compared with prior studies. ASSESSMENT: Benign, BI-RAD 2 RECOMMENDATION: Routine screening mammogram of both breasts in 1 year.
== END | disposition home or self-care (01) ==
LOC: RADMAMWWP 14:32
PROVIDERS: ATTEND Obstetrics & Gynecology
DX: Z12.31 Encounter for screening mammogram for malignant neoplasm of breast (principal)
CPT/HCPCS: 77063; 77067

== ENCOUNTER → 2018-06-14 | Outpatient (CLI) | payer OTHER ==
[2018-06-14 12:20] LABS: Basophils # (A) 0.1 k/uL (0-0.2); Basophils % (A) 1 %; Eosinophils # (A) 0.3 k/uL (0-0.7); Eosinophils % (A) 3 %; HCT 40.6 % (34.0-46.0); Lymphocytes # (A) 2.3 k/uL (1.0-4.8); Lymphocytes % (A) 26 %; MCH 29.1 pg (25.0-35.0); MCHC 31.9 g/dL (31.0-37.0); MCV 91.4 fL (80.0-100.0); Mean Platelet Volume 8.7; Monocytes # (A) 0.6 k/uL (0-1.0); Monocytes % (A) 6 %; Neutrophils # (A) 5.4 k/uL (1.3-7.7); Neutrophils % (A) 62 %; Platelet Count 241 k/uL (150-450); RBC 4.45 m/uL (3.80-5.40); RDW 13.1 % (11.5-15.5); WBC 8.7 k/uL (3.8-10.6)
[2018-06-14 16:28] LABS: Albumin 3.9 g/dL (3.80-4.90); Albumin/Globulin Ratio 1.86 (1.20-2.10); Anion Gap 7.7 mmol/L (4.00-12.00); Calcium 8.9 mg/dL (8.7-10.3); Carbon Dioxide 25.3 mmol/L (21.6-31.8); Globulin 2.1 g/dL (1.6-3.3); LDL Cholesterol,Calculated 114.2 mg/dL (0.0-131.0); Potassium 4.8 mmol/L (3.5-5.5); Total Bilirubin 0.4 mg/dL (0.2-1.2); Uric Acid 4.6 mg/dL (2.9-7.7); VLDL Calculation 14.8 mg/dL (5.00-40.00)
[2018-06-14 16:35] LABS: T4, Free (Free Thyroxine) 1.1 ng/dL (0.80-1.80)
[2018-06-14 16:39] LABS: Vitamin D 25 Hydroxy 50.5 ng/mL (30.0-100.0)
[2018-06-14 16:43] LABS: C Reactive Protein, High Sens 11.13 mg/L (0.000-3.000)
[2018-06-14 20:13] LABS: Hemoglobin A1C 5.5 % (4.0-6.0)
== END ==
LOC: LABWHC1 10:39
PROVIDERS: ATTEND Internal Medicine Cardiovascular Disease
DX: E55.9 Vitamin D deficiency, unspecified (principal); I47.1 Supraventricular tachycardia; I10 Essential (primary) hypertension; R53.83 Other fatigue
CPT/HCPCS: 36415; 80053; 80061; 82150; 82306; 83036; 83695; 84439; 84443; 84481; 84550; 85025; 86141

== ENCOUNTER → 2018-06-22 | Outpatient (CLI) | payer OTHER ==
[2018-06-23 12:36] LABS: Immunoglobulin M 97.7 mg/dL (40.0-280.0)
[2018-06-25 14:50] LABS: APTT 46 Sec(s) (<43); APTT 1:1 Mix 41 Sec(s) (<43); Dilute Russell Viper Venom 43 Sec(s) (<44)
== END | disposition home or self-care (01) ==
LOC: LABWHC1 14:02
PROVIDERS: ATTEND Internal Medicine Cardiovascular Disease
DX: M19.90 Unspecified osteoarthritis, unspecified site (principal)
CPT/HCPCS: 36415; 82784; 85613; 85730; 85732; 86235

== ENCOUNTER → 2019-02-14 | Outpatient (CLI) | payer OTHER ==
--- NOTE | 2019-02-14 11:10 | MM ---
Reason for exam: screening (asymptomatic). Last mammogram was performed 1 year and 1 month ago. History: Patient has history of other cancer at age 39 and is nulliparous. Family history of breast cancer in paternal aunt at age 60 and premenopausal breast cancer in paternal grandmother at age 40. Benign left mammotome panel of the left breast, November 16, 2011. Took hormonal contraceptives for 16 years 6 months beginning at age 19. Physical Findings: A clinical breast exam by your physician is recommended on an annual basis and results should be correlated with mammographic findings. MG 3D Screening Mammo W/Cad Bilateral CC and MLO view(s) were taken. Prior study comparison: January 25, 2018, bilateral MG 3d screening mammo w/cad. January 31, 2017, right breast MG 3d work up w/cad RT. There are scattered fibroglandular densities. Finding: There is a 9 mm circumscribed oval mass located 7 cm from the nipple in the slight upper outer quadrant, anterior middle position of the left breast. Previous mammotome biopsy in the left breast. New finding since January 25, 2018 and January 31, 2017. ASSESSMENT: Incomplete: need additional imaging evaluation, BI-RAD 0 RECOMMENDATION: Ultrasound of the left breast. [facility] will attempt to contact patient to return for ultrasound.
== END | disposition home or self-care (01) ==
LOC: RADMAMWWP 07:50
PROVIDERS: ATTEND Obstetrics & Gynecology
DX: Z12.31 Encounter for screening mammogram for malignant neoplasm of breast (principal); Z80.3 Family history of malignant neoplasm of breast
CPT/HCPCS: 77063; 77067

== ENCOUNTER → 2019-02-26 | Outpatient (CLI) | payer OTHER ==
--- NOTE | 2019-02-27 08:22 | USB ---
Reason for exam: additional evaluation requested from abnormal screening. History: Patient has history of other cancer at age 39 and is nulliparous. Family history of breast cancer in paternal aunt at age 60 and premenopausal breast cancer in paternal grandmother at age 40. Benign left mammotome panel of the left breast, November 16, 2011. Took hormonal contraceptives for 16 years 6 months beginning at age 19. Physical Findings: Nurse Summary: all soft, nodular, movable (nurse ts). US Breast Workup Limited LT Left limited breast ultrasound including focal area of concern, retroareolar and axilla demonstrates a 6 x 3 x 8mm oval, cystic lesion at 3 o'clock corresponds with mammogram. These results were verbally communicated with the patient and result sheet given to the patient on 02/26/19. ASSESSMENT: Benign, BI-RAD 2 RECOMMENDATION: Return to routine screening mammogram schedule for both breasts.
== END | disposition home or self-care (01) ==
LOC: RADUSWWP 14:11
PROVIDERS: ATTEND Obstetrics & Gynecology
DX: R92.8 Other abnormal and inconclusive findings on diagnostic imaging of breast (principal)

== ENCOUNTER → 2019-12-17 | Outpatient (CLI) | payer BC ==
[2019-12-17 11:27] LABS: ALT 19 U/L (4-34); AST 21 U/L (14-36); African American GFR (CKD) >90 (>60 ml/min/1.73 sqM); Albumin 3.9 g/dL (3.5-5.0); Alkaline Phosphatase 87 U/L (38-126); Anion Gap 4 mmol/L; Blood Urea Nitrogen 13 mg/dL (7-17); Calcium 9.3 mg/dL (8.4-10.2); Carbon Dioxide 26 mmol/L (22-30); Chloride 107 mmol/L (98-107); Glucose 96 mg/dL (74-99); HCT 39.1 % (34.0-46.0); HGB 12.8 gm/dL (11.4-16.0); MCH 30.4 pg (25.0-35.0); MCHC 32.7 g/dL (31.0-37.0); Mean Platelet Volume 9.3; Non-African American GFR(CKD) >90 (>60 ml/min/1.73 sqM); Platelet Count 239 k/uL (150-450); Potassium 4.3 mmol/L (3.5-5.1); RBC 4.21 m/uL (3.80-5.40); RDW 13.4 % (11.5-15.5); Sodium 137 mmol/L (137-145); Total Bilirubin 0.5 mg/dL (0.2-1.3); Total Protein 6.3 g/dL (6.3-8.2); WBC 9.2 k/uL (3.8-10.6)
[2019-12-17 11:39] LABS: Appearance,Urine Clear (Clear); Bilirubin,Urine Negative (Negative); Blood,Urine Trace (Negative); Color,Urine Light Yellow; Glucose,Urine (UA) Negative (Negative); Ketones,Urine Negative (Negative); Leukocyte Esterase,Urine Trace (Negative); Mucus,Urine Rare /hpf; Nitrite,Urine Negative (Negative); PH, Urine 5.5 (5.0-8.0); Protein,Urine Negative (Negative); Specific Gravity,Urine 1.018 (1.001-1.035); Squamous Epithelial Cell,Urine 2 /hpf (0-4); Urobilinogen,Urine <2.0 mg/dL (<2.0); WBC,Urine 2 /hpf (0-5)
[2019-12-17 11:40] LABS: INR 0.9 (<1.2); Partial Thromboplastin Time 23.4 sec (22.0-30.0); Prothrombin Time 9.5 sec (9.0-12.0)
== END | disposition home or self-care (01) ==
LOC: LABPAT 10:19
PROVIDERS: ATTEND Orthopaedic Surgery
DX: Z01.818 Encounter for other preprocedural examination (principal); Z01.812 Encounter for preprocedural laboratory examination
CPT/HCPCS: 36415; 80053; 81001; 85027; 85610; 85730; 87070

== ENCOUNTER 2019-12-24 09:26 | Day surgery (SDC) | payer BC, OTHER ==
[2019-12-19 11:01] VITALS: BMI 47.0
[~2019-12-24 09:26] MED LIST changes: +ACETAMINOPHEN TAB 500 MG TAB ONE; +ACETAMINOPHEN TAB 500 MG TAB PO ONE; -DEXAMETHASONE SOD PHOSPHATE 10 MG/ML 1 ML VIAL IV ONE; +GABAPENTIN 300 MG CAP PO ONE; -HEPARIN SODIUM,PORCINE 5,000 UNIT/ML 1 ML VIAL SQ ONE; +HYDROmorphone 0.5 MG/0.5 ML SYRINGE IVP PRN; -LACTATED RINGERS 1,000 ML IV SCH; +LIDOCAINE 1% (10MG/ML) FOR IV START INTRADERMA PRN; +MELOXICAM 7.5 MG TAB PO ONE; -MIDAZOLAM 2 MG/2 ML VIAL IV PRN; +ONDANSETRON 4 MG/2 ML VIAL ONE; +ROPIVACAINE 246.25 MG, EPINEPHrine 0.5 MG, KETOROLAC 30 MG, cloNIDine HCL/PF 80 MCG, WA... MISCELLANE ONE; -SCOPOLAMINE 1.5MG/72HR PATCH TRANSDERM ONE; +TRANEXAMIC ACID 1,000 MG in SODIUM CHLORIDE 0.9% 100 ML IVPB ONE; -fentaNYL (PF) 50 MCG/ML 2 ML AMP IV PRN
[2019-12-24] MEDS: LACTATED RINGERS 1,000 ML IV SCH (09:58)
[2019-12-24] MEDS ORDERED: MIDAZOLAM 2 MG/2 ML VIAL IV ONE (10:03)
[2019-12-24] MEDS ORDERED: ROPIVACAINE 0.2%-NS ON-Q PUMP 1,090 MG, EMPTY PAIN BALL 1 EACH MISCELLANE PRN (10:25)
--- NOTE | 2019-12-24 10:27 | P.ANPRN ---
Procedure Note - Anesthesia - Nerve Block Performed Left Adductor Canal Time Out Performed: Yes (10:01) Date of Procedure: 12/24/19 Procedure Start Time: :02 Procedure Stop Time: 10:16 Location of Patient: PreOp Indication: Acute Post-Operative Pain, Requested by Surgeon (Dr Adarsh Dyson) Sedation Type: Sedate with meaningful contact maintained Preparation: Sterile Prep, Sterile Dressing Position: Supine Catheter: Indwelling Needle Types: Pajunk Needle Gauge: 21 Ultrasound used to visualize needle placement: Yes Ultrasound used to observe medication spread: Yes Injectate: 0.5% Ropivacaine (see comment for volume) (20cc) Blood Aspirated: No Pain Paresthesia on Injection Noted: No Resistance on Injection: Normal Image Stored and Saved: Yes Events: Uneventful and Well Tolerated
[2019-12-24] MEDS ORDERED: bisacodyL 10 MG SUPP RECTAL PRN (11:19)
[2019-12-24] MEDS ORDERED: HYDROmorphone 1 MG/ML 1 ML SYRINGE IVP PRN (11:19)
[2019-12-24] MEDS ORDERED: NA PHOS,M-B/NA PHOS,DI-BA 133 ML ENEMA RECTAL PRN (11:19)
[2019-12-24] MEDS ORDERED: hydrOXYzine pamoate 25 MG CAP PO PRN (11:19)
[2019-12-24] MEDS ORDERED: MAGNESIUM HYDROXIDE 2,400 MG/10 ML CUP PO PRN (11:19)
[2019-12-24] MEDS ORDERED: diazePAM 5 MG TAB PO PRN (11:19)
[2019-12-24] MEDS ORDERED: NALOXONE 0.4 MG/ML 1 ML VIAL IV PRN (11:19)
[2019-12-24] MEDS ORDERED: HYDROcodone/APAP 5-325MG 1 EACH TAB PO PRN (11:19)
[2019-12-24] MEDS ORDERED: HYDROmorphone 0.5 MG/0.5 ML SYRINGE IVP PRN ×2 (11:19)
[2019-12-24] MEDS ORDERED: ONDANSETRON 4 MG/2 ML VIAL IVP PRN (11:19)
[2019-12-24] MEDS ORDERED: PROPOFOL 10 MG/ML 20 ML VIAL IV ONE (11:27)
[2019-12-24] MEDS ORDERED: fentaNYL (PF) 50 MCG/ML 2 ML AMP ONE (11:27)
[2019-12-24] MEDS ORDERED: MIDAZOLAM 2 MG/2 ML VIAL ONE (11:27)
[2019-12-24] MEDS ORDERED: ceFAZolin 3,000 MG in SODIUM CHLORIDE 0.9% IRRIGATIO 3,000 ML IRRIGATION ONE (11:32)
[2019-12-24] MEDS ORDERED: LACTATED RINGERS 1,000 ML IV ONE (12:21)
--- NOTE | 2019-12-24 12:57 | P.OP ---
Date of Procedure: 12/24/19 Preoperative Diagnosis: Severe osteoarthritis left knee Postoperative Diagnosis: Severe osteoarthritis left knee Procedure(s) Performed: Left total knee arthroplasty utilizing Visionaire patient specific guides Implants: Arshad and Nephew Cruciate Retaining Journey II CR Oxinium Femoral Component size 3, left Arshad & Nephew Journey Nonporous Tibial Baseplate size 2, left Arshad & Nephew Journey II Deep Dished, XLPE Articular Insert, 9 mm, size 1-2 Arshad & Nephew Charlotte II Resurfacing Patellar Component, Oval, 29 mm All components were cemented using Palacose R bone cement. Visionaire patient specific guides The articulation is Oxinium on polyethylene. Anesthesia: spinal Surgeon: Adarsh Dyson Slab Conditioner Supervisor #1: [place] Steele Estimated Blood Loss (ml): 25 Pathology: other (Bone and cartilage) Condition: stable Disposition: PACU Indications for Procedure: After failure of conservative treatment we discussed the surgical and nonsurgical treatment options at length. Patient wishes to proceed with a total knee arthroplasty. Complications specific to this procedure were discussed at length, including but not limited to infection, bleeding, stiffness, and nerve injury. Covid-19 was also discussed at length with the patient, and they are aware of the current policies and procedures. The patient was given the option of delaying surgery, but they elect to proceed knowing these risks. Patient is aware of all these complications and informed consent was obtained Operative Findings: The operative findings are consistent with severe osteoarthritis of the left knee Description of Procedure: Patient was seen in the preoperative area consent was reviewed and operative site was marked with a skin marker. An adductor canal pain catheter was placed by anesthesia in the preoperative area. Patient was then brought to the operating room and given preoperative antibiotics intravenously. A spinal anesthetic was administered by the anesthesia department. A tourniquet was placed on the upper thigh and the lower extremity was prepped and draped in usual sterile fashion. A gram of transexamic acid was given. A universal timeout was then performed which confirmed the patient's name, surgical site, ALLERGIES, and consent. The lower extremity was then exsanguinated and tourniquet was inflated to 250 mmHg. A standard and anterior midline approach to the knee was performed. The skin and subcutaneous tissue was dissected down to the patellar tendon. A medial parapatellar arthrotomy was then performed. The knee was then extended, the patellar was everted, and the knee was again flexed. Anterior horns of both menisci were excised, and a release was performed to the posterior medial aspect of the knee. On gross visual inspection, there was complete loss of articular cartilage in the medial and patellofemoral joint spaces. There was also significant cartilage damage in the lateral compartment. There were multiple periarticular osteophytes. The patient specific guide was placed on the distal femur, and pinned in place. Using the patient specific guide, the distal femoral cut was performed. The cutting block was then removed and the cut was checked for flatness. The appropriate 5-in-1 cutting block was then pinned in place through the holes that were drilled through the patient specific guide. The anterior condyles were cut without notching. The posterior and chamfer cuts were performed while protecting the collateral ligaments. The cutting block was then removed. Attention was then directed to the tibia. The remaining ACL was removed with a Ronguer, and the tibia was then gently subluxed forward with a large bent knee retractor. Any remaining menisci was excised. The posterior lateral corner was cauterized in order to cauterize the lateral geniculate artery. The patient specific guide for the tibia was then placed and was held in place with pins. Pinholes were then placed for rotation of the tibial component as well. Proximal tibia was then cut and sized. Next trials were then placed with the appropriate-sized insert. The knee was able to fully extend and flex to 130 and was stable throughout all range of motion. The knee was then extended, patella everted. Patella was then measured, and then using an osteotomy guide, the patella was cut at the appropriate level. The patella was then measured and drilled and the patella trial was then placed. The knee was then taken through range of motion with the patella trial and the patella tracked normally. The knee was then extended patella trial was then removed and the patella was everted. Knee was then flexed and lug holes were drilled through the femoral trial and the femoral trial was then removed. The tibial was then exposed, and the tibial broach guide was then pinned in place after it was set for the appropriate rotation to allow for the most coverage without overhang. The tibia was then reamed and broached. The cut surfaces of bone were then irrigated with pulsatile lavage. The posterior structures were injected with the ropivacaine solution. The knee was also irrigated with Irrisept solution. The components were then opened, the cement was mixed, and the components were then cemented in place. The cement was allowed to harden with the knee in full extension. While the cement was hardening, the remaining soft tissues were then injected with a ropivacaine solution, which consisted of 246.25 mg of ropivacaine, 0.5 mg of epinephrine, 30 mg of Toradol, 80 g of clonidine, and 48.45 mL of sterile water, for a total of 100 mL of fluid injected. After the cemented hardened. The tourniquet was released, and hemostasis was obtained. A second gram of transexamic acid was given. The knee was again irrigated. The knee was again taken through range of motion and found to be stable throughout all range of motion of 0-130, and the patella tracked normally. The fascia was then closed with #2 strata fix suture. The subcutaneous tissue was closed with 3-0 Vicryl and 3-0 strata fix. Dermabond glue was used for the skin and placed with the knee in flexion. The patient was placed in a sterile silver dressing. Patient was then transferred to recovery room in stable condition. The sales assistant DAT Miller was required due the complexity surgery and the need for a skilled surgical elastic knitter hand frame. She assisted in positioning, draping, retraction, and closure of the wound.
--- NOTE | 2019-12-24 14:00 | XR ---
EXAMINATION TYPE: XR knee limited LT DATE OF EXAM: 12/24/2019 COMPARISON: NONE HISTORY: 49-year-old female evaluation for postoperative abnormality and alignment TECHNIQUE: 2 views FINDINGS: Images show placement of total knee arthroplasty. Both distal femoral and proximal tibial components of prosthesis appear well seated without periprosthetic fracture. Alignment grossly anatomic. Scatter ed soft tissue air and intra-articular air related to recent operation. IMPRESSION: Uncomplicated postoperative appearance left total knee arthroplasty.
[2019-12-24] MEDS ORDERED: NON FORMULARY DRUG (Epinephrine (Auto Inject) 0.3 MG) IM PRN (18:19)
[2019-12-24] MEDS ORDERED: ALPRAZolam 0.5 MG TAB PO PRN (18:19)
[2019-12-24] MEDS: SODIUM CHLORIDE 0.9% 1,000 ML IV SCH (19:33)
[2019-12-24] MEDS: ASPIRIN 325 MG TAB PO SCH (20:31)
[2019-12-24] MEDS: HYDROcodone/APAP 5-325MG 1 EACH TAB PO PRN (20:32)
[2019-12-24] MEDS ORDERED: MONTELUKAST 10 MG TAB PO SCH (21:00)
[2019-12-24] MEDS ORDERED: CHOLECALCIFEROL 1,000 UNIT TAB PO SCH (21:00)
[2019-12-24] MEDS ORDERED: LORATADINE 10 MG TAB PO SCH (21:00)
[2019-12-24] MEDS ORDERED: SENNOSIDES-DOCUSATE SODIUM 1 EACH TAB PO SCH (21:00)
[2019-12-24] MEDS ORDERED: SERTRALINE 100 MG TAB PO SCH (21:00)
[2019-12-24] MEDS ORDERED: CALCIUM CARBONATE 500 MG CHEWABLE PO PRN (22:00)
[2019-12-25] MEDS ORDERED: ALBUTEROL NEBULIZED 2.5 MG/3 ML INHALATION PRN
[2019-12-25] MEDS: SODIUM CHLORIDE 0.9% 1,000 ML IV SCH (01:06)
[2019-12-25] MEDS: LACTATED RINGERS 1,000 ML IV SCH (03:01)
--- NOTE | 2019-12-25 03:11 | CONS ---
CONSULTATION DATE OF SERVICE: 12/24/2019 REASON FOR CONSULTATION: Advice regarding asthma and multiple other medical issues requested by Dr. yDson. HISTORY OF PRESENT ILLNESS: This 49-year-old woman with a past medical history of multiple medical issues including history of asthma, GERD, DJD, history of sleep apnea, SVT, being followed Dr. Haas in the outpatient setting underwent left total knee arthroplasty by Dr. Dyson. The patient tolerated the procedure well. Patient is being closely monitored. Patient is complaining of some pain. There is no history of fever or rigors. No history of headache, loss consciousness, chest pain or palpitations. PAST MEDICAL HISTORY: Asthma, DJD, pneumonia, SVT, history of ESBL. MEDICATIONS: The home medications are: Zoloft, Singulair, Synthroid, Motrin, Breo Ellipta, Drisdol, EpiPen, vitamin D3, Zyrtec, Tums, Ventolin, Xanax. Doses are reviewed. ALLERGIES: ALMOND, LATEX, NEOMYCIN, PEANUTS, TREE NUTS, SUDAFED and NUTS. FAMILY HISTORY: History of deep vein thrombosis, pulmonary embolism in the family. SOCIAL HISTORY: No history of smoking. Occasional alcohol. REVIEW OF SYSTEMS: ENT: No diminished hearing or diminished vision. CARDIOVASCULAR SYSTEM: No angina. RESPIRATORY SYSTEM: No cough. GI: As mentioned earlier. : No dysuria. NERVOUS SYSTEM: No numbness or weakness. ALLERGY/IMMUNOLOGY: Asthma. MUSCULOSKELETAL: As mentioned earlier. HEMATOLOGY: No history of anemia. ENDOCRINE: Hypothyroidism. CONSTITUTIONAL: As mentioned earlier. DERMATOLOGY: Negative. RHEUMATOLOGY: Negative. PSYCHIATRY: As mentioned earlier. PHYSICAL EXAMINATION: Patient is alert and oriented x3. Pulse is 71, blood pressure 121/73, respiration 20, temperature 98.1, pulse ox 97% on room air. HEENT: Conjunctivae normal. Oral mucosa moist. NECK: No jugular venous distention. No carotid bruit. No lymph node enlargement. CARDIOVASCULAR: S1 S2 muffled. RESPIRATORY: Breath sounds diminished at the bases. No rhonchi, no crackles. ABDOMEN: Soft, nontender. No mass palpable. LEGS: Status post knee arthroplasty. NERVOUS SYSTEM: Higher functions as mentioned. Moves all 4 limbs. No focal motor or sensory deficits. LYMPHATICS: No lymphadenopathy of the neck, axillae or groin. SKIN: No ulcer, rash or bleeding. JOINTS: No active deforming arthropathy. LABS: The previous labs are available in the chart showed lupus anticoagulant. Otherwise, basically negative labs. ASSESSMENT: 1. Status post left total knee arthroplasty. 2. Asthma. 3. Gastroesophageal reflux disease. 4. Degenerative joint disease. 5. Pneumonia. 6. Sleep apnea. 7. Supraventricular tachycardia. 8. Eczema. 9. History of hiatal hernia. 10.History of gastric bypass. 11.History of pancreatitis. 12.History of hypothyroidism. 13.History of ESBL. 14.Family history of deep vein thrombosis. 15.Anxiety. 16.Lupus anticoagulant positive. 17.Obesity with body mass index of 46.8. 18.FULL CODE. RECOMMENDATIONS AND DISCUSSION: This 49-year-old woman presented after surgery. At this time I recommend to continue the current medications, continue symptomatic treatment. Resume the home medications. I would also recommend a course of Xarelto as a DVT prophylaxis because of the strong family history. Otherwise, we will follow the patient closely with you. Thank you Dr. Dyson for letting us participate in the care of this patient. The patient may be asked to follow up with Dr. Haas closely after discharge. MMODL / IJN: [id number] /
[2019-12-25] MEDS: HYDROcodone/APAP 5-325MG 1 EACH TAB PO PRN (05:09)
[2019-12-25] MEDS ORDERED: LEVOTHYROXINE 50 MCG TAB PO SCH (06:30)
[2019-12-25 07:00] VITALS: BP 122/69; PULSE 85; RESP 18; TEMP 99.1
[2019-12-25] MEDS: ASPIRIN 325 MG TAB PO SCH (07:43)
[2019-12-25] MEDS ORDERED: SYMBICORT 160-4.5 MCG INHALER INHALATION SCH (08:00)
[2019-12-25 08:45] LABS: Basophils # (A) 0.1 k/uL (0-0.2); Basophils % (A) 1 %; Eosinophils # (A) 0.1 k/uL (0-0.7); Eosinophils % (A) 1 %; HCT 36.1 % (34.0-46.0); HGB 11.1 gm/dL (11.4-16.0); Lymphocytes # (A) 1.4 k/uL (1.0-4.8); Lymphocytes % (A) 12 %; MCH 29.2 pg (25.0-35.0); MCHC 30.7 g/dL (31.0-37.0); Mean Platelet Volume 9.8; Monocytes # (A) 0.9 k/uL (0-1.0); Monocytes % (A) 8 %; Neutrophils # (A) 8.9 k/uL (1.3-7.7); Neutrophils % (A) 78 %; Platelet Count 210 k/uL (150-450); RDW 13.1 % (11.5-15.5); WBC 11.4 k/uL (3.8-10.6)
[2019-12-25] MEDS ORDERED: ERGOCALCIFEROL 50,000 UNIT CAP PO SCH (09:00)
[2019-12-25] MEDS ORDERED: MELOXICAM 7.5 MG TAB PO SCH (09:00)
--- NOTE | 2019-12-25 09:30 | P.DS ---
Providers Expected date of discharge: 12/25/19 Attending physician: Adarsh Dyson Consults: 12/24/19 11:19 Consult Physician Routine Consulting Provider: Liv Garcia Consult Reason/Comments: medical management Do you want consulting provider notified?: Yes Primary care physician: Raquel Haas - Discharge Diagnosis(es) (1) S/P total knee arthroplasty Current Visit: Yes Status: Acute (2) Osteoarthritis of left knee Current Visit: Yes Status: Acute Hospital Course: This is a 49-year-old female with known history of degenerative arthritis of the with left knee. The patient presents for evaluation. After discussion and consideration patient elects to proceed with total knee arthroplasty. The patient is seen preoperatively by Dr. Dyson and medically cleared for surgery by their primary care physician. Patient is admitted to [facility] on 12/24/2019 for total knee arthroplasty. The procedures performed without complication or sequelae. The patient is doing well postoperatively. Labs and vital signs are stable on day of discharge. On day of discharge patient's knee incision is healing well. There is minimal erythema. There is no drainage noted at this time. There is minimal soft tissue swelling to the knee. Patient has full foot and ankle motion without difficulty or pain. Calf is soft and nontender to palpation. Neurovascular status to the left lower extremity is intact. Patient is discharged home in go od condition. Opioid start talking form is reviewed and signed at patient bedside. Please see med rec for accurate list of home medications. Plan - Discharge Summary Discharge Rx Participant: No New Discharge Prescriptions: New Aspirin 325 mg PO BID #60 tab HYDROcodone/APAP 5-325MG [Bondurant 5-325] 1 - 2 tab PO Q6HR PRN #48 tab PRN Reason: Pain Sennosides [Senokot] 2 tab PO DAILY PRN #60 tablet PRN Reason: Constipation Ondansetron Odt [Zofran Odt] 1 - 2 tab PO Q8HR PRN #18 tab PRN Reason: Nausea No Action ALPRAZolam [Xanax] 0.5 mg PO BID PRN PRN Reason: Anxiety EPINEPHrine (Auto Inject) [Epipen] 0.3 mg IM ONCE PRN PRN Reason: Anaphylaxis Albuterol Inhaler (Mhu) [Ventolin Inhaler] 1 - 2 puff INHALATION RT-QID PRN PRN Reason: Shortness Of Breath Montelukast [Singulair] 10 mg PO HS Ergocalciferol [Vitamin D2 (DRISDOL)] 50,000 unit PO WE Cetirizine HCl [Zyrtec] 10 mg PO HS Ibuprofen [Motrin Ib] 200 - 400 mg PO Q6H PRN PRN Reason: Pain Levothyroxine Sodium [Synthroid] 25 mcg PO DIRECTED Levothyroxine Sodium [Synthroid] 50 mcg PO DIRECTED Calcium Carbonate [Tums] 750 mg PO DIRECTED PRN PRN Reason: Heartburn Cholecalciferol (Vitamin D3) [Vitamin D3] 1,000 unit PO HS Fluticasone/Vilanterol [Breo Ellipta 200-25 Mcg INH] 1 inhalation INHALATION QAM Sertraline [Zoloft] 100 mg PO HS Discharge Medication List ALPRAZolam [Xanax] 0.5 mg PO BID PRN 08/19/14 [History] Albuterol Inhaler (Mhu) [Ventolin Inhaler] 1 - 2 puff INHALATION RT-QID PRN 08/19/14 [History] Cetirizine HCl [Zyrtec] 10 mg PO HS 08/19/14 [History] EPINEPHrine (Auto Inject) [Epipen] 0.3 mg IM ONCE PRN 08/19/14 [History] Ergocalciferol [Vitamin D2 (DRISDOL)] 50,000 unit PO WE 08/19/14 [History] Montelukast [Singulair] 10 mg PO HS 08/19/14 [History] Ibuprofen [Motrin Ib] 200 - 400 mg PO Q6H PRN 07/14/17 [History] Levothyroxine Sodium [Synthroid] 25 mcg PO DIRECTED 07/14/17 [History] Levothyroxine Sodium [Synthroid] 50 mcg PO DIRECTED 07/14/17 [History] Calcium Carbonate [Tums] 750 mg PO DIRECTED PRN 12/19/19 [History] Cholecalciferol (Vitamin D3) [Vitamin D3] 1,000 unit PO HS 12/19/19 [History] Fluticasone/Vilanterol [Breo Ellipta 200-25 Mcg INH] 1 inhalation INHALATION QAM 12/19/19 [History] Sertraline [Zoloft] 100 mg PO HS 12/19/19 [History] Aspirin 325 mg PO BID #60 tab 07/22/20 [Rx] HYDROcodone/APAP 5-325MG [Bondurant 5-325] 1 - 2 tab PO Q6HR PRN #48 tab 12/25/19 [Rx] Ondansetron Odt [Zofran Odt] 1 - 2 tab PO Q8HR PRN #18 tab 12/25/19 [Rx] Sennosides [Senokot] 2 tab PO DAILY PRN #60 tablet 12/25/19 [Rx] Follow up Appointment(s)/Referral(s): Raquel Haas MD [Primary Care Provider] - 1 Week Adarsh Dyson DO [Doctor of Osteopathic Medicine] - 01/06/20 9:00 am () Activity/Diet/Wound Care/Special Instructions: Weightbearing as tolerated with a walker. CPM 5-6h daily. Leave dressing intact. May be removed by home care nurse or by patient in 10 days. May shower with dressing on. Recommend use of compression stockings daily until follow up to help prevent swelling and blood clots. May remove at night before sleeping. Please follow up with [facility] and call with any questions or concerns, . Discharge Disposition: HOME WITH HOME HEALTH SERVICES
--- NOTE | 2019-12-25 11:45 | P.PN ---
Progress Note - Text 12/24 644am 49-year-old female status post total knee replacement. Patient has an On-Q pump for postop pain control the solution running at 8 mL an hour with a VAS of 2.. Patient doing well, plan to continue On-Q pump infusion
--- NOTE | 2019-12-25 16:53 | PN ---
PROGRESS NOTE DATE OF SERVICE: 12/25/2019 This 49-year-old woman who was admitted after left total knee arthroplasty is improving significantly. No chest pain. No palpitations. No fever. PHYSICAL EXAMINATION: Alert and oriented x3. Pulse is 85, blood pressure 122/69, respiration 18, temperature 99.1, pulse ox 98% on room air. HEENT: Conjunctivae normal. NECK: No jugular venous distention. CARDIOVASCULAR SYSTEM: S1, S2 muffled. RESPIRATORY SYSTEM: Breath sounds diminished at the bases. A few rhonchi. No crackles. ABDOMEN: Soft, non-tender. LEGS: Status post surgery. NERVOUS SYSTEM: No focal deficit. LABS: WBC 11.2, hemoglobin 11.1. ASSESSMENT: 1. Status post left total knee arthroplasty. 2. History of asthma. 3. History of gastroesophageal reflux disease. 4. Degenerative joint disease. 5. History of pneumonia. 6. History of sleep apnea. 7. History of supraventricular tachycardia. 8. History of eczema. 9. History of hiatal hernia. 10.History of gastric bypass. 11.History of pancreatitis. 12.History of hypothyroidism. 13.Extended-spectrum beta-lactamase. 14.Family history of deep vein thrombosis. 15.Anxiety. 16.Lupus anticoagulant positive. 17.Obesity with body mass index of 46.8. 18.FULL CODE. RECOMMENDATIONS AND DISCUSSION: I recommend to continue current medications, continue with the monitoring, symptomatic treatment. Otherwise at this time I would recommend Xarelto for at least 2 weeks because of the high risk nature of the history of the patient. I recommend close followup with Dr. Haas in the outpatient setting. Rest of the recommendations per Orthopedic Surgery. MMODL / IJN: [id number] /
[2019-12-26] MEDS ORDERED: LEVOTHYROXINE 25 MCG TAB PO SCH (06:30)
== END 2019-12-25 14:16 | disposition home health service (06) ==
LOC: OR 09:26 → 4SSUR 13:31 → OR 12-25 14:16
PROVIDERS: ATTEND Orthopaedic Surgery
DX: M17.12 Unilateral primary osteoarthritis, left knee (principal); M21.162 Varus deformity, not elsewhere classified, left knee; J98.9 Respiratory disorder, unspecified; J45.909 Unspecified asthma, uncomplicated; E03.9 Hypothyroidism, unspecified; F32.9 Major depressive disorder, single episode, unspecified; L98.9 Disorder of the skin and subcutaneous tissue, unspecified; K21.9 Gastro-esophageal reflux disease without esophagitis; G47.30 Sleep apnea, unspecified; I47.1 Supraventricular tachycardia; L30.9 Dermatitis, unspecified; F41.9 Anxiety disorder, unspecified; D68.62 Lupus anticoagulant syndrome; E66.9 Obesity, unspecified; Z82.49 Family history of ischemic heart disease and other diseases of the circulatory system; Z83.3 Family history of diabetes mellitus; Z79.890 Hormone replacement therapy; Z79.51 Long term (current) use of inhaled steroids; Z79.899 Other long term (current) drug therapy; Z88.1 Allergy status to other antibiotic agents; Z91.040 Latex allergy status; Z91.018 Allergy to other foods; Z91.048 Other nonmedicinal substance allergy status; Z90.49 Acquired absence of other specified parts of digestive tract; Z98.890 Other specified postprocedural states; Z87.01 Personal history of pneumonia (recurrent); Z79.1 Long term (current) use of non-steroidal anti-inflammatories (NSAID); Z91.010 Allergy to peanuts; Z88.8 Allergy status to other drugs, medicaments and biological substances; Z98.84 Bariatric surgery status; Z87.19 Personal history of other diseases of the digestive system; Z68.42 Body mass index [BMI] 45.0-49.9, adult; Z86.19 Personal history of other infectious and parasitic diseases
CPT/HCPCS: 27447; 94640; 97110; 97161; 64448; 76942; 85025; 88300; 73560; C1713; C1776; J2250; J0171; J0690 ×3; J2405; J1885; J2795 ×2; J0735

== ENCOUNTER → 2020-04-21 | Outpatient (CLI) | payer BC ==
--- NOTE | 2020-04-23 08:34 | MM ---
Reason for exam: screening (asymptomatic). Last mammogram was performed 1 year and 2 months ago. History: Patient has history of other cancer at age 39 and is nulliparous. Family history of breast cancer in paternal aunt at age 60 and premenopausal breast cancer in paternal grandmother at age 40. Benign left mammotome panel of the left breast, November 16, 2011. Took hormonal contraceptives for 16 years 6 months beginning at age 19. Physical Findings: A clinical breast exam by your physician is recommended on an annual basis and results should be correlated with mammographic findings. MG 3D Screening Mammo W/Cad Bilateral CC and MLO view(s) were taken. Prior study comparison: February 14, 2019, bilateral MG 3d screening mammo w/cad. January 25, 2018, bilateral MG 3d screening mammo w/cad. There are scattered fibroglandular densities. Previous mammotome biopsy in the left breast. No significant changes when compared with prior studies. ASSESSMENT: Benign, BI-RAD 2 RECOMMENDATION: Routine screening mammogram of both breasts in 1 year.
== END | disposition home or self-care (01) ==
LOC: RADMAMWWP 07:28
PROVIDERS: ATTEND Obstetrics & Gynecology
DX: Z12.31 Encounter for screening mammogram for malignant neoplasm of breast (principal); Z80.3 Family history of malignant neoplasm of breast
CPT/HCPCS: 77063; 77067

== ENCOUNTER → 2020-05-07 | Outpatient (CLI) | payer BC ==
[2020-05-07 13:13] LABS: Basophils # (A) 0.1 k/uL (0-0.2); Basophils % (A) 1 %; Eosinophils # (A) 0.2 k/uL (0-0.7); Eosinophils % (A) 2 %; HCT 41.5 % (34.0-46.0); HGB 13.3 gm/dL (11.4-16.0); Lymphocytes # (A) 1.9 k/uL (1.0-4.8); Lymphocytes % (A) 22 %; MCH 28.9 pg (25.0-35.0); MCHC 32.2 g/dL (31.0-37.0); Mean Platelet Volume 9.8; Monocytes # (A) 0.5 k/uL (0-1.0); Monocytes % (A) 6 %; Neutrophils % (A) 68 %; Platelet Count 221 k/uL (150-450); RBC 4.61 m/uL (3.80-5.40); RDW 13.6 % (11.5-15.5); WBC 8.8 k/uL (3.8-10.6)
[2020-05-07 20:19] LABS: African American GFR (CKD) 99.6 (60.0-200.0); Albumin 4.2 g/dL (3.80-4.90); Anion Gap 7.3 mmol/L (4.00-12.00); BUN/Creat Ratio 17.5 Ratio (12.00-20.00); Calcium 9.3 mg/dL (8.7-10.3); Carbon Dioxide 25.7 mmol/L (21.6-31.8); Chol/HDL Ratio 3.18; Globulin 2.1 g/dL (1.6-3.3); LDL Cholesterol,Calculated 110.8 mg/dL (0.0-131.0); Potassium 4.3 mmol/L (3.5-5.5); Total Bilirubin 0.3 mg/dL (0.2-1.2); Total Protein 6.3 g/dL (6.2-8.2); VLDL Calculation 20.2 mg/dL (5.00-40.00)
== END | disposition home or self-care (01) ==
LOC: LABWHC1 11:35
PROVIDERS: ATTEND Internal Medicine Cardiovascular Disease
DX: Z00.00 Encounter for general adult medical examination without abnormal findings (principal); E03.9 Hypothyroidism, unspecified; E55.9 Vitamin D deficiency, unspecified; Z13.29 Encounter for screening for other suspected endocrine disorder; Z13.0 Encounter for screening for diseases of the blood and blood-forming organs and certain disorders involving the immune mechanism; Z13.228 Encounter for screening for other metabolic disorders; Z13.220 Encounter for screening for lipoid disorders
CPT/HCPCS: 36415; 80053; 80061; 82306; 84443; 85025

== ENCOUNTER 2020-07-03 08:20 | Day surgery (SDC) | payer BC ==
[2020-07-01 10:17] VITALS: BMI 48.1
[2020-07-03 08:43] VITALS: RESP 16; TEMP 98.5
[2020-07-03] MEDS ORDERED: PROPOFOL 10 MG/ML 20 ML VIAL IV ONE (09:11)
--- NOTE | 2020-07-03 09:26 | P.PCN ---
Date of Procedure: 07/03/20 Procedure(s) Performed: BRIEF HISTORY: Patient is a 49-year-old pleasant white female scheduled for an elective colonoscopy as a part of screening for colon rectal neoplasia. PROCEDURE PERFORMED: Colonoscopy. PREOPERATIVE DIAGNOSIS: Screening for colon cancer. IV sedation per Anesthesia. PROCEDURE: After informed consent was obtained, the patient, was brought into the endoscopy unit. IV sedation was administered by Anesthesia under continuous monitoring. Digital rectal examination was normal. Initially the Olympus CF-160 flexible video colonoscope was then inserted in the rectum, gradually advanced into the cecum without any difficulty. Careful examination was performed as the scope was gradually being withdrawn. Ileocecal valve and the appendiceal orifice were visualized and appeared normal. Prep was excellent. Mucosa of the cecum, ascending colon, transverse colon, descending colon, sigmoid colon, and rectum appeared normal. Retroflexion was performed in the rectum and no lesions were seen. The patient tolerated the procedure well. IMPRESSION: Normal-appearing colon from rectum to cecum with no evidence of colorectal neoplasia. RECOMMENDATIONS: Findings of this examination were discussed with the patient is a family. She was advised to have a repeat screening colonoscopy in 10 years..
[2020-07-03] MEDS ORDERED: LACTATED RINGERS 1,000 ML IV ONE (09:46)
[2020-07-03 09:47] VITALS: BP 145/77; PULSE 70
== END 2020-07-03 10:00 | disposition home or self-care (01) ==
LOC: ORWHC2ENDO 08:20
PROVIDERS: ATTEND Internal Medicine Gastroenterology
DX: Z12.11 Encounter for screening for malignant neoplasm of colon (principal); J45.909 Unspecified asthma, uncomplicated; E07.9 Disorder of thyroid, unspecified; K21.9 Gastro-esophageal reflux disease without esophagitis; Z79.890 Hormone replacement therapy; Z79.899 Other long term (current) drug therapy; Z91.040 Latex allergy status; Z88.1 Allergy status to other antibiotic agents; Z91.018 Allergy to other foods; Z86.79 Personal history of other diseases of the circulatory system; Z96.652 Presence of left artificial knee joint; Z90.49 Acquired absence of other specified parts of digestive tract; Z98.890 Other specified postprocedural states
CPT/HCPCS: 81025; J2704; G0121

== ENCOUNTER → 2020-11-24 | Outpatient (CLI) | payer BC ==
[2020-11-24 16:22] LABS: Basophils # (A) 0.06 X 10*3/uL (0.00-0.10); Basophils % (A) 0.7 %; Eosinophils # (A) 0.21 X 10*3/uL (0.04-0.35); Eosinophils % (A) 2.6 %; HCT 41.8 % (37.2-46.3); HGB 13.1 g/dL (12.0-15.0); Lymphocytes # (A) 1.87 X 10*3/uL (0.90-5.00); Lymphocytes % (A) 23.1 %; MCH 29.4 pg (27.0-32.0); MCHC 31.3 g/dL (32.0-37.0); MCV 93.9 fL (80.0-97.0); Mean Platelet Volume 12.1 fL (9.5-12.2); Monocytes # (A) 0.85 X 10*3/uL (0.20-1.00); Monocytes % (A) 10.5 %; Neutrophils # (A) 5.04 X 10*3/uL (1.80-7.70); Neutrophils % (A) 62.4 %; Platelet Count 261 X 10*3/uL (140-440); RBC 4.45 X 10*6/uL (4.10-5.20); RDW 13.3 % (11.5-14.5); WBC 8.09 X 10*3/uL (4.50-10.00)
[2020-11-24 18:06] LABS: Hemoglobin A1C 5.4 % (4.0-6.0)
[2020-11-24 18:57] LABS: African American GFR (CKD) 98.9 (60.0-200.0); Albumin/Globulin Ratio 1.6 (1.60-3.17); Anion Gap 5.9 mmol/L (4.00-12.00); BUN/Creat Ratio 17.5 Ratio (12.00-20.00); Calcium 9.1 mg/dL (8.7-10.3); Carbon Dioxide 27.1 mmol/L (21.6-31.8); Chol/HDL Ratio 3.72; Globulin 2.5 g/dL (1.6-3.3); LDL Cholesterol,Calculated 126.4 mg/dL (0.0-131.0); Non-African American GFR(CKD) 85.4 (60.0-200.0); Potassium 4.1 mmol/L (3.5-5.5); Total Bilirubin 0.4 mg/dL (0.2-1.2); Total Protein 6.5 g/dL (6.2-8.2); VLDL Calculation 20.6 mg/dL (5.00-40.00)
[2020-11-26 10:01] LABS: Lipoprotein A 89 mg/dL (0-30)
== END | disposition home or self-care (01) ==
LOC: LABWHC1 10:10
PROVIDERS: ATTEND Internal Medicine Cardiovascular Disease
DX: Z13.0 Encounter for screening for diseases of the blood and blood-forming organs and certain disorders involving the immune mechanism (principal); Z13.228 Encounter for screening for other metabolic disorders; Z13.220 Encounter for screening for lipoid disorders; Z13.1 Encounter for screening for diabetes mellitus; E56.9 Vitamin deficiency, unspecified
CPT/HCPCS: 36415; 80053; 80061; 82172; 82306; 83036; 83695; 84439; 84443; 84481; 85025

== ENCOUNTER → 2020-12-01 | Outpatient (CLI) | payer BC ==
[2020-12-02 13:58] LABS: C-ANCA <1:20 Titer (<1:20)
== END | disposition home or self-care (01) ==
LOC: LABWHC1 10:20
PROVIDERS: ATTEND Internal Medicine Cardiovascular Disease
DX: Z13.228 Encounter for screening for other metabolic disorders (principal); Z13.0 Encounter for screening for diseases of the blood and blood-forming organs and certain disorders involving the immune mechanism; Z13.29 Encounter for screening for other suspected endocrine disorder; D68.9 Coagulation defect, unspecified
CPT/HCPCS: 36415; 81241; 86038; 86255

== ENCOUNTER → 2021-04-27 | Outpatient (CLI) | payer BC ==
--- NOTE | 2021-04-28 10:31 | MM ---
Reason for exam: screening (asymptomatic). Last mammogram was performed 1 year ago. History: Patient has history of other cancer at age 39 and is nulliparous. Family history of breast cancer in paternal aunt at age 60 and premenopausal breast cancer in paternal grandmother at age 40. Benign left mammotome panel of the left breast, November 16, 2011. Took hormonal contraceptives for 16 years 6 months beginning at age 19. Physical Findings: A clinical breast exam by your physician is recommended on an annual basis and results should be correlated with mammographic findings. MG 3D Screening Mammo W/Cad Bilateral CC and MLO view(s) were taken. Prior study comparison: April 21, 2020, bilateral MG 3d screening mammo w/cad. February 14, 2019, bilateral MG 3d screening mammo w/cad. There are scattered fibroglandular densities. Previous mammotome biopsy in the left breast. No significant changes when compared with prior studies. ASSESSMENT: Benign, BI-RAD 2 RECOMMENDATION: Routine screening mammogram of both breasts in 1 year.
== END | disposition home or self-care (01) ==
LOC: RADMAMWWP 09:55
PROVIDERS: ATTEND Obstetrics & Gynecology
DX: Z12.31 Encounter for screening mammogram for malignant neoplasm of breast (principal); Z80.3 Family history of malignant neoplasm of breast
CPT/HCPCS: 77063; 77067

== ENCOUNTER → 2021-08-17 | Outpatient (CLI) | payer BC ==
[2021-08-17 19:14] LABS: ALT 29 U/L (8-44); AST 25 U/L (13-35); African American GFR (CKD) 98.2 (60.0-200.0); Albumin 4.4 g/dL (3.8-4.9); Albumin/Globulin Ratio 1.42 (1.60-3.17); Alkaline Phosphatase 98 U/L (41-126); Calcium 9.9 mg/dL (8.7-10.3); Carbon Dioxide 20.6 mmol/L (20.0-27.5); Chloride 103 mmol/L (96-109); Chol/HDL Ratio 3.73 Ratio; Globulin 3.1 g/dL (1.6-3.3); Glucose 99 mg/dL (70-110); LDL Cholesterol,Calculated 161.3 mg/dL (0.0-131.0); Non-African American GFR(CKD) 84.8 (60.0-200.0); Potassium 4.2 mmol/L (3.5-5.5); Sodium 138 mmol/L (135-145); Total Protein 7.5 g/dL (6.2-8.2); VLDL Calculation 17.98 mg/dL (5.00-40.00)
[2021-08-17 19:34] LABS: Basophils # (A) 0.07 X 10*3/uL (0.00-0.10); Basophils % (A) 0.7 %; Eosinophils # (A) 0.26 X 10*3/uL (0.04-0.35); Eosinophils % (A) 2.7 %; HCT 44.5 % (37.2-46.3); HGB 13.7 g/dL (12.0-15.0); Immature Grans, Automated 1.1 %; Lymphocytes # (A) 1.92 X 10*3/uL (0.90-5.00); Lymphocytes % (A) 20.2 %; MCHC 30.8 g/dL (32.0-37.0); MCV 90.8 fL (80.0-97.0); Mean Platelet Volume 12.1 fL (9.5-12.2); Monocytes # (A) 1.06 X 10*3/uL (0.20-1.00); Monocytes % (A) 11.1 %; NRBC Per 100 WBC 0 /100 WBCS (0.0-0.0); Neutrophils # (A) 6.11 X 10*3/uL (1.80-7.70); Neutrophils % (A) 64.2 %; Platelet Count 286 X 10*3/uL (140-440); WBC 9.52 X 10*3/uL (4.50-10.00)
== END | disposition home or self-care (01) ==
LOC: LABWHC1 11:31
PROVIDERS: ATTEND Internal Medicine Cardiovascular Disease
DX: Z13.29 Encounter for screening for other suspected endocrine disorder (principal); E78.5 Hyperlipidemia, unspecified
CPT/HCPCS: 36415; 80053; 80061; 84439; 84443; 84481; 85025

== ENCOUNTER → 2021-11-23 | Outpatient (CLI) | payer BC ==
[2021-11-23 17:40] LABS: ALT 21 U/L (8-44); AST 19 U/L (13-35); Chol/HDL Ratio 2.16 Ratio; LDL Cholesterol,Calculated 67.3 mg/dL (0.0-131.0); VLDL Calculation 10.66 mg/dL (5.00-40.00)
== END | disposition home or self-care (01) ==
LOC: LABWHC1 11:15
PROVIDERS: ATTEND Internal Medicine Cardiovascular Disease
DX: Z13.29 Encounter for screening for other suspected endocrine disorder (principal); I10 Essential (primary) hypertension; E78.5 Hyperlipidemia, unspecified; E11.9 Type 2 diabetes mellitus without complications; R01.1 Cardiac murmur, unspecified; R07.89 Other chest pain
CPT/HCPCS: 36415; 80061; 83036; 83695; 84450; 84460

== ENCOUNTER → 2022-05-02 | Outpatient (CLI) | payer BC ==
[2022-05-02 12:23] LABS: INR 0.9 (<1.2); Partial Thromboplastin Time 24.1 sec (22.0-30.0); Prothrombin Time 10.2 sec (9.0-12.0)
[2022-05-02 18:00] LABS: HGB 13.6 g/dL (12.0-15.0); MCH 28.9 pg (27.0-32.0); MCHC 31.6 g/dL (32.0-37.0); MCV 91.3 fL (80.0-97.0); Mean Platelet Volume 12.3 fL (9.5-12.2); NRBC Per 100 WBC 0 /100 WBCS (0.0-0.0); Platelet Count 224 X 10*3/uL (140-440); RBC 4.71 X 10*6/uL (4.10-5.20); RDW 13.3 % (11.5-14.5)
[2022-05-02 19:15] LABS: African American GFR (CKD) 99.6 (60.0-200.0); Albumin 4.3 g/dL (3.8-4.9); Albumin/Globulin Ratio 1.6 (1.60-3.17); Anion Gap 11.6 mmol/L (10.00-18.00); BUN/Creat Ratio 17.19 Ratio (12.00-20.00); Blood Urea Nitrogen 13.6 mg/dL (9.0-27.0); Calcium 9.9 mg/dL (8.7-10.3); Carbon Dioxide 24.8 mmol/L (20.0-27.5); Globulin 2.7 g/dL (1.6-3.3); Non-African American GFR(CKD) 85.9 (60.0-200.0); Potassium 4.2 mmol/L (3.5-5.5); Total Bilirubin 0.4 mg/dL (0.30-1.20)
[2022-05-02 19:26] LABS: Appearance,Urine Clear (Clear); Bilirubin,Urine Negative (Negative); Blood,Urine Negative (Negative); Color,Urine Yellow (Yellow); Ketones,Urine Negative (Negative); Nitrite,Urine Negative (Negative); Specific Gravity,Urine 1.014 (1.001-1.030); Urobilinogen,Urine 0.2 (0.2,1.0)
== END | disposition home or self-care (01) ==
LOC: LABPAT 11:17
PROVIDERS: ATTEND Orthopaedic Surgery
DX: Z01.812 Encounter for preprocedural laboratory examination (principal); M17.11 Unilateral primary osteoarthritis, right knee
CPT/HCPCS: 36415; 80053; 81003; 85027; 85610; 85730; 87070; 93005

== ENCOUNTER → 2022-05-02 | Outpatient (CLI) | payer BC ==
--- NOTE | 2022-05-03 09:03 | MM ---
Reason for Exam: Screening (asymptomatic). Last screening mammogram was performed 12 month(s) ago. Patient History: Menarche at age 11. Patient has no children. Hormonal Contraceptives, starting at age 19 for 16 years, 6 months. 11/16/2011, Benign Core Biopsy on the left side. Paternal grandmother had breast cancer, age 40. Paternal aunt had breast cancer, age 60. Paternal aunt had breast cancer, age 83. Risk Values: Sarah 5 year model risk: 1.4%. NCI Lifetime model risk: 11.2%. Prior Study Comparison: 02/14/2019 Bilateral Screening Mammogram, [facility]. 04/21/2020 Bilateral Screening Mammogram, [facility]. 04/27/2021 Bilateral Screening Mammogram, [facility]. Tissue Density: There are scattered fibroglandular densities. Findings: Analyzed By CAD. Mammotome biopsy clip left breast redemonstrated. Benign-appearing bilateral axillary lymph nodes again seen. There is no suspicious group of microcalcifications or new suspicious mass in either breast. Overall Assessment: Benign, BI-RAD 2 Management: Screening Mammogram of both breasts in 1 year. A clinical breast exam by your physician is recommended on an annual basis and results should be correlated with mammographic findings. Electronically signed and approved by: Aaron Calderon M.D.
== END | disposition home or self-care (01) ==
LOC: RADMAMWWP 10:51
PROVIDERS: ATTEND Obstetrics & Gynecology
DX: Z12.31 Encounter for screening mammogram for malignant neoplasm of breast (principal); Z80.3 Family history of malignant neoplasm of breast
CPT/HCPCS: 77063; 77067

== ENCOUNTER 2022-05-24 05:40 | Day surgery (SDC) | payer BC ==
[2022-05-20 11:34] VITALS: BMI 47.5
[~2022-05-24 05:40] MED LIST changes: -ACETAMINOPHEN TAB 500 MG TAB ONE; -ACETAMINOPHEN TAB 500 MG TAB PO ONE; +ACETAMINOPHEN TAB 500 MG TAB PO PRN; -GABAPENTIN 300 MG CAP PO ONE; +GABAPENTIN 300 MG CAP PO PRN; -HYDROmorphone 0.5 MG/0.5 ML SYRINGE IVP PRN; -LIDOCAINE 1% (10MG/ML) FOR IV START INTRADERMA PRN; -MELOXICAM 7.5 MG TAB PO ONE; +MELOXICAM 7.5 MG TAB PO PRN; -ONDANSETRON 4 MG/2 ML VIAL IVP ONE; -ONDANSETRON 4 MG/2 ML VIAL ONE; -ROPIVACAINE 246.25 MG, EPINEPHrine 0.5 MG, KETOROLAC 30 MG, cloNIDine HCL/PF 80 MCG, WA... MISCELLANE ONE; -TRANEXAMIC ACID 1,000 MG in SODIUM CHLORIDE 0.9% 100 ML IVPB ONE; +TRANEXAMIC ACID IN NACL,ISO-OS 1,000 MG in SALINE 1 100ML.BAG IVPB PRN
[2022-05-24] MEDS ORDERED: ONDANSETRON 4 MG/2 ML VIAL IVP ONE (05:56)
[2022-05-24] MEDS ORDERED: DEXAMETHASONE SOD PHOSPHATE 4 MG/ML 1 ML VIAL IV ONE (05:56)
[2022-05-24] MEDS ORDERED: LIDOCAINE 1% (10MG/ML) FOR IV START INTRADERMA PRN (05:56)
[2022-05-24] MEDS: LACTATED RINGERS 1,000 ML IV SCH (06:13)
[2022-05-24] MEDS ORDERED: fentaNYL (PF) 50 MCG/1 ML VIAL IVP ONE (06:42)
[2022-05-24] MEDS ORDERED: MIDAZOLAM 2 MG/2 ML VIAL IVP ONE (06:42)
[2022-05-24] MEDS ORDERED: TRANEXAMIC ACID IN NACL,ISO-OS 1,000 MG/100 ML BAG ONE (06:58)
[2022-05-24] MEDS ORDERED: MIDAZOLAM 2 MG/2 ML VIAL ONE (06:58)
[2022-05-24] MEDS ORDERED: diphenhydrAMINE 50 MG/ML 1 ML VIAL ONE (06:58)
[2022-05-24] MEDS ORDERED: KETAMINE 10 MG/ML 20 ML VIAL ONE (06:58)
[2022-05-24] MEDS ORDERED: PROPOFOL 10 MG/ML 20 ML VIAL IV ONE (06:58)
[2022-05-24] MEDS ORDERED: ROPIVACAINE 5 MG/ML 30 ML VIAL ONE (06:58)
[2022-05-24] MEDS ORDERED: LACTATED RINGERS 1,000 ML IV ONE (07:59)
--- NOTE | 2022-05-24 08:02 | P.ANPRN ---
Procedure Note - Anesthesia - Nerve Block Performed Right iPack Time Out Performed: Yes Date of Procedure: 05/24/22 Location of Patient: PreOp Indication: Acute Post-Operative Pain, Requested by Surgeon Sedation Type: Sedate with meaningful contact maintained Preparation: Sterile Prep, Sterile Dressing Position: Supine Needle Types: Pajunk Needle Gauge: 21 Ultrasound used to visualize needle placement: Yes Ultrasound used to observe medication spread: Yes Injectate: 0.5% Ropivacaine (see comment for volume) (15) Blood Aspirated: No Pain Paresthesia on Injection Noted: No Resistance on Injection: Normal Image Stored and Saved: Yes Events: Uneventful and Well Tolerated Right Adductor Canal Infusion Time Out Performed: Yes Date of Procedure: 05/24/22 Location of Patient: PreOp Indication: Acute Post-Operative Pain, Requested by Surgeon Sedation Type: Sedate with meaningful contact maintained Preparation: Sterile Prep, Sterile Dressing Position: Supine Needle Types: On-Q Needle Gauge: 21 Ultrasound used to visualize needle placement: Yes Ultrasound used to observe medication spread: Yes Injectate: 0.5% Ropivacaine (see comment for volume) (30) Blood Aspirated: No Pain Paresthesia on Injection Noted: No Resistance on Injection: Normal Image Stored and Saved: Yes Events: Uneventful and Well Tolerated
--- NOTE | 2022-05-24 08:15 | P.OP ---
Date of Procedure: 05/24/22 Preoperative Diagnosis: Severe osteoarthritis right knee Postoperative Diagnosis: Severe osteoarthritis right knee Procedure(s) Performed: Right total knee arthroplasty using zePASSaire patient specific guides Implants: Arshad [employer] Nephew Journey II CR Oxinium cruciate retaining femoral component size 3, right [employer]sh[employer] Journey nonporous tibial baseplate size 2, right [employer]sh[employer] Journey II, XLPE Deep Dished articular insert, size 9 mm, Size 1- 2, right [employer]sh[employer] Journey Charlotte II resurfacing patellar component, oval, 29 mm All components were cemented using Palacos R bone cement The articulation is Oxinium on polyethylene Visionaire patient specific guides Anesthesia: spinal Surgeon: Adarsh Dyson Shipping Support Clerk #1: [place] Steele Estimated Blood Loss (ml): 30 Pathology: other (Bone and cartilage) Condition: stable Disposition: PACU Indications for Procedure: This is a 51-year-old female with a history of right knee osteoarthritis. The patient's knee is end-stage, and conservative management has failed. The operation of knee replacement has been discussed at length in the office, as well as potential risks and complications. These are inclusive of, but not limited to: Infection, bleeding, scarring, discomfort, stiffness, blood vessel and nerve damage, need for further surgery, failure to relieve symptoms, persistence, recurrence, or worsening of problems, loosening, dislocation, wear, blood clot, pulmonary embolism, , gait dysfunction, stiffness, and other risks as discussed in the office. Patient elects to proceed and the consent form has been signed. Operative Findings: The operative findings are consistent with severe osteoarthritis of the right knee Description of Procedure: Patient was seen in the preoperative area and the consent was reviewed and the operative site was marked with a skin marker. The patient verified the procedure and the operative site. An adductor canal pain catheter was placed by anesthesia in the preoperative area. The patient was then brought to the operating room and given preoperative antibiotics intravenously. A gram of transexamic acid was given intravenously. A spinal anesthetic was administered by the anesthesia department. A tourniquet was placed on the upper thigh and the lower extremity was prepped with chlorhexidine and draped in usual sterile fashion. A universal timeout was then performed which confirmed the patient's name, surgical site, ALLERGIES, and consent. The lower extremity was then exsanguinated and tourniquet was inflated to 300 mmHg. A standard anterior midline approach to the knee was performed. The skin and subcutaneous tissue were sharply dissected down to the patellar tendon. A medial parapatellar arthrotomy was then performed. The knee was then extended, the patellar was everted, and the knee was again flexed. The infra-patellar fat pad was removed in order to enhance exposure. The anterior horns of both menisci were excised, and a release was performed to the posterior medial aspect of the knee. On gross visual inspection, there was complete loss of articular cartilage in the medial and patellofemoral joint spaces. There was also significant cartilage damage in the lateral compartment. There were multiple periarticular osteophytes globally about the knee. The patient specific guide was placed on the distal femur, and pinned in place. Using the patient specific guide, the distal femoral cut was performed. The cutting block was then removed and the cut was checked for symmetry. The spikes of the femoral block was then placed into the predrilled holes, and malleted into place. Two 45 mm pins were then placed into the fixation holes on the cutting block. An stacy wing was then used to ensure there would be no notching with the anterior cut. The anterior condyles were cut without notching. The anterior chord cut was then performed, followed by the posterior cut, posterior chamfer cut, and the anterior chamfer cut. The collateral ligaments were protected during the entire process. The cutting block was then removed. Any remaining bone and osteophytes were removed from the femur with a Ronguer. The femoral canal was plugged with autologous bone. Attention was then directed to the tibia. The remaining ACL was removed with a Ronguer, and the tibia was then gently subluxed forward with a large bent knee retractor. Any remaining menisci were excised. The posterior lateral corner was cauterized in order to coagulate the lateral geniculate artery. The patient specific guide for the tibia was then placed and was held in place with pins. Pinholes were then placed for rotation of the tibial component as well. Proximal tibia was then cut and sized. The femoral trial was placed. A narrow saw blade was then used to remove the anterior intracondylar femoral bone. The CR notch trial was then placed. The tibial trial was placed with the appropriate-sized insert. The knee was able to fully extend and flex to 130 and was stable throughout all range of motion. The knee was then extended and the patella was everted. Patella was then measured, and then using an osteotomy guide, the patella was cut at the appropriate level. The patella was then measured and drilled and the patella trial was then placed. The knee was then taken through range of motion with the patella trial and the patella tracked normally using the no thumbs technique.. The knee was then extended patella trial was then removed and the patella was everted. Knee was then flexed and lug holes were drilled through the femoral trial and the femoral trial was then removed. The tibial was then re-exposed, and the tibial broach guide was then pinned in place after it was set for the appropriate rotation to allow for the most coverage without overhang. The tibia was then reamed and broached. The cut surfaces of bone were then irrigated with pulsatile lavage. The knee was also irrigated with Irrisept solution. The components were then opened, the cement was mixed, and the components were then cemented in place. The cement was allowed to harden with the knee in full extension. After the cemented hardened. The tourniquet was released, and hemostasis was obtained. A second gram of transexamic acid was given intravenously. The knee was again irrigated. The knee was again taken through range of motion and found to be stable throughout all range of motion of 0-130, and the patella tracked normally. The fascia was then closed with 0 Vicryl followed by #2 strata fix suture. The sub cutaneous tissue was closed with 3-0 Vicryl and 3-0 strata fix. Exofin glue was used for the skin and placed with the knee in flexion. After the glue had dried, and Optafoam silver impregnated dressing was applied. The patient was then transferred to recovery room in stable condition. The medical assistant secretary DAT Miller was required due the complexity surgery and the need for a skilled surgical scrub technician. She assisted in positioning, draping, retraction, and closure of the wound.
[2022-05-24] MEDS ORDERED: bisacodyL 10 MG SUPP RECTAL PRN (08:51)
[2022-05-24] MEDS ORDERED: NALOXONE 0.4 MG/ML 1 ML VIAL IV PRN (08:51)
[2022-05-24] MEDS ORDERED: MAGNESIUM HYDROXIDE 2,400 MG/10 ML CUP PO PRN (08:51)
[2022-05-24] MEDS ORDERED: HYDROmorphone 0.5 MG/0.5 ML SYRINGE IVP PRN ×2 (08:51)
[2022-05-24] MEDS ORDERED: NA PHOS,M-B/NA PHOS,DI-BA 133 ML ENEMA RECTAL PRN (08:51)
[2022-05-24] MEDS ORDERED: ONDANSETRON 4 MG/2 ML VIAL IVP PRN (08:51)
[2022-05-24] MEDS: HYDROmorphone 0.5 MG/0.5 ML SYRINGE IVP PRN ×2 (08:57→09:36)
--- NOTE | 2022-05-24 10:01 | XR ---
EXAMINATION TYPE: XR knee limited RT DATE OF EXAM: 05/24/2022 COMPARISON: NONE TECHNIQUE: Two views submitted HISTORY: Post op FINDINGS: There is a prosthetic knee in near anatomic alignment. There is soft tissue edema and emphysema. IMPRESSION: 1. Postoperative change. Appears in near-anatomic alignment
[2022-05-24] MEDS ORDERED: ROPIVACAINE 1,100 MG, SODIUM CHLORIDE 0.9% 500 ML 330 ML, EMPTY PAIN BALL 1 EACH MISCELLANE PRN ×2 (10:23)
[2022-05-24] MEDS: SODIUM CHLORIDE 0.9% 1,000 ML IV SCH ×2 (11:29→23:28)
[2022-05-24] MEDS: HYDROcodone/APAP 7.5-325MG 1 EACH TAB PO PRN ×2 (13:06→18:39)
--- NOTE | 2022-05-24 14:15 | P.CONS ---
History of Present Illness - Reason for Consult Asthma - History of Present Illness Patient is a 51-year-old female came in for the osteoarthritis of the right knee and the underwent right knee surgery. Patient is just out of surgery clinically doing fairly well does have history of asthma. Denied any symptoms at this time except for some pain in the surgical site area. REVIEW OF SYSTEMS: CONSTITUTIONAL: No fever, no malaise, no fatigue. HEENT: No recent visual problems or hearing problems. Denied any sore throat. CARDIOVASCULAR: No chest pain, orthopnea, PND, no palpitations, no syncope. PULMONARY: No shortness of breath, no cough, no hemoptysis. GASTROINTESTINAL: No diarrhea, no nausea, no vomiting, no abdominal pain. NEUROLOGICAL: No headaches, no weakness, no numbness. HEMATOLOGICAL: Denies any bleeding or petechiae. GENITOURINARY: Denies any burning micturition, frequency, or urgency. MUSCULOSKELETAL/RHEUMATOLOGICAL: As mentioned in HPI ENDOCRINE: Denies any polyuria or polydipsia. The rest of the 14-point review of systems is negative. PHYSICAL EXAMINATION: GENERAL: The patient is alert and oriented x3, not in any acute distress. Obese HEENT: Pupils are round and equally reacting to light. EOMI. No scleral icterus. No conjunctival pallor. Normocephalic, atraumatic. No pharyngeal erythema. No thyromegaly. CARDIOVASCULAR: S1 and S2 present. No murmurs, rubs, or gallops. PULMONARY: Chest is clear to auscultation, no wheezing or crackles. ABDOMEN: Soft, nontender, nondistended, normoactive bowel sounds. No palpable organomegaly. MUSCULOSKELETAL: Deferred to orthopedic surgery EXTREMITIES: No cyanosis, clubbing, or pedal edema. NEUROLOGICAL: Gross neurological examination did not reveal any focal deficits. SKIN: No rashes. Assessment and plan -Right knee arthroplasty pain management and due to prophylaxis per primary service -Asthma without any acute exacerbation patient was resumed on home and occasions -gastroesophageal reflux disease -Obesity history of sleep apnea patient will restart back on CPAP -History of super ventricular tachycardia -hypothyroidism -Hypertension patient resumed on her home medications Past Medical History Past Medical History: Asthma, GERD/Reflux, Hearing Disorder / Deafness, Hyperlipidemia, Osteoarthritis (OA), Pneumonia, Skin Disorder, Sleep Apnea/CPAP/BIPAP, Supraventricular Tachycardia (SVT), Thyroid Disorder Additional Past Medical History / Comment(s): Eczema, hx ulcer in the , hiatal hernia, IUD, CPAP use, positive lupus anticoagulant, hx perforated left eardrum resulting in some positional hearing loss. History of Any Multi-Drug Resistant Organisms: None Reported Year Discovered:: 07/14/17 MDRO Source:: ESBL-URINE Past Surgical History: Cholecystectomy, Joint Replacement, Orthopedic Surgery Additional Past Surgical History / Comment(s): Bilateral knee arthroscopy, bilateral lasik eye surgery, left knee replacement. Past Anesthesia/Blood Transfusion Reactions: Previous Problems w/ Anesthesia, Motion Sickness Additional Past Anesthesia/Blood Transfusion Reaction / Comm: SLOW TO COME OUT OF ANESTHESIA, "loopy after." Past Psychological History: Anxiety, Depression Smoking Status: Never smoker Past Alcohol Use History: Rare Past Drug Use History: None Reported - Past Family History Mother Family Medical History: Pulmonary Embolus Medications and Allergies Home Medications Medication Instructions Recorded Confirmed Type ALPRAZolam [Xanax] 0.5 mg PO BID PRN 08/19/14 05/20/22 History Albuterol Inhaler [Ventolin Hfa 1 - 2 puff INHALATION QID 08/19/14 05/20/22 History Inhaler] Cetirizine HCl [Zyrtec] 10 mg PO HS 08/19/14 05/20/22 History EPINEPHrine (Auto Inject) [Epipen] 0.3 mg IM ONCE PRN 08/19/14 05/20/22 History Ergocalciferol [Vitamin D2 50,000 unit PO WE 08/19/14 05/20/22 History (DRISDOL)] Montelukast [Singulair] 10 mg PO HS 08/19/14 05/20/22 History Levothyroxine Sodium [Synthroid] 25 mcg PO DIRECTED 07/14/17 05/20/22 History Levothyroxine Sodium [Synthroid] 50 mcg PO DIRECTED 07/14/17 05/20/22 History Calcium Carbonate [Tums] 750 mg PO DIRECTED PRN 12/19/19 05/20/22 History Fluticasone/Vilanterol [Breo 1 inhalation INHALATION QAM 12/19/19 05/20/22 History Ellipta 200-25 Mcg Inhaler] Sertraline [Zoloft] 150 mg PO HS 12/19/19 05/20/22 History Ondansetron Odt [Zofran Odt] 1 - 2 tab PO Q8HR PRN #18 tab 12/25/19 05/20/22 Rx Acetaminophen Tab [Tylenol Tab] 500 - 1,000 mg PO Q4-6H PRN 05/20/22 05/20/22 History Fluocinonide 0.05% [Lidex 0.05% 1 applic TOPICAL BID PRN 05/20/22 05/20/22 History cream] HYDROcodone/APAP 7.5-325MG [[place] 1 - 2 tab PO Q6H PRN #32 tab 05/24/22 Rx 7.5-325] Rivaroxaban [Xarelto] 10 mg PO DAILY #12 tab 05/24/22 Rx Sennosides [Senokot] 2 tab PO DAILY PRN #60 tablet 05/24/22 Rx Allergies Allergy/AdvReac Type Severity Reaction Status Date / Time adhesive Allergy hives Verified 05/24/22 07:08 almond Allergy Anaphylaxis Verified 05/24/22 07:08 latex Allergy rash, Verified 05/24/22 07:08 large hand swelling neomycin sulfate Allergy Rash/Hives Verified 05/24/22 07:08 [From Neosporin ([id number])] peanut Allergy Anaphylaxis Verified 05/24/22 07:08 tree nut [Nut] Allergy Anaphylaxis Verified 05/24/22 07:08 pseudoephedrine AdvReac Rapid Verified 05/24/22 07:08 Heart Rate Nuts Allergy Anaphylaxis Uncoded 05/24/22 07:08 Physical Exam Vitals: Vital Signs Temp Pulse Pulse Resp BP Pulse Ox 05/24/22 13:01 82 152/84 95 05/24/22 13:00 74 147/82 95 05/24/22 12:45 79 151/87 93 L 05/24/22 12:30 86 157/85 95 05/24/22 12:15 70 145/80 94 L 05/24/22 12:00 74 145/78 95 05/24/22 11:45 74 133/81 93 L 05/24/22 11:30 97.5 F L 82 14 143/81 94 L 05/24/22 11:02 81 16 142/65 96 05/24/22 10:46 82 16 142/62 96 05/24/22 10:31 74 16 139/65 96 05/24/22 10:16 80 16 145/64 96 05/24/22 10:00 77 16 147/65 98 05/24/22 09:46 72 16 148/66 98 05/24/22 09:32 71 16 150/71 98 05/24/22 09:19 66 16 131/68 98 05/24/22 09:01 67 16 130/66 98 05/24/22 08:42 97 F L 72 16 125/64 98 05/24/22 06:58 88 16 98/55 96 05/24/22 05:59 97.6 F 80 16 133/64 96 Intake and Output 05/23/22 05/24/22 05/24/22 22:59 06:59 14:59 Intake Total 400 1300 Output Total 30 Balance 400 1270 Intake: IV 400 1300 Output: Estimated Blood Loss 30 Other: Weight 116.8 kg
[2022-05-24] MEDS: ALBUTEROL NEBULIZED 2.5 MG/3 ML INHALATION SCH ×3 (16:24→20:55)
[2022-05-24] MEDS ORDERED: MONTELUKAST 10 MG TAB PO SCH (21:00)
[2022-05-24] MEDS ORDERED: SENNOSIDES-DOCUSATE SODIUM 1 EACH TAB PO SCH (21:00)
[2022-05-24] MEDS ORDERED: LORATADINE 10 MG TAB PO SCH (21:00)
[2022-05-24] MEDS ORDERED: SERTRALINE 100 MG TAB PO SCH (21:00)
[2022-05-24] MEDS: HYDROmorphone 1 MG/ML 1 ML SYRINGE IVP PRN (21:50)
[2022-05-25] MEDS: HYDROcodone/APAP 7.5-325MG 1 EACH TAB PO PRN ×3 (01:24→11:58)
[2022-05-25] MEDS: HYDROmorphone 1 MG/ML 1 ML SYRINGE IVP PRN (04:09)
[2022-05-25] MEDS: LACTATED RINGERS 1,000 ML IV SCH (06:05)
[2022-05-25] MEDS ORDERED: LEVOTHYROXINE 25 MCG TAB PO SCH (06:30)
[2022-05-25] MEDS: ALBUTEROL NEBULIZED 2.5 MG/3 ML INHALATION SCH ×2 (07:17→11:17)
--- NOTE | 2022-05-25 07:34 | P.PN ---
Progress Note - Text Progress Note Date: 05/25/22 Postoperative day # 1 status post total knee arthroplasty, and adductor canal catheter placed for postoperative analgesia, currently at ropivacaine 0.2% 8 mL per hour and continuous infusion, visual analogue scale is 6/10, patient using oral pain medication [place] 7.5/325 for breakthrough pain. Assessment and plan= Acute postoperative pain, adductor canal catheter for pain control, pain is not well controlled, we will increase the infusion to 10 ML per hour ,and we will continue the oral pain medication [place] 7.5/325 for breakthrough pain
[2022-05-25 07:50] VITALS: BP 153/86; PULSE 96; RESP 17; TEMP 98
[2022-05-25] MEDS ORDERED: SYMBICORT 160-4.5 MCG INHALER INHALATION SCH (08:00)
--- NOTE | 2022-05-25 08:34 | P.DS ---
Providers Expected date of discharge: 05/25/22 Attending physician: Adarsh Dyson Consults: 05/24/22 08:51 Consult Physician Routine Consulting Provider: Liv Garcia Consult Reason/Comments: medical management Do you want consulting provider notified?: Yes Primary care physician: Raquel Haas - Discharge Diagnosis(es) (1) Primary localized osteoarthritis of right knee Current Visit: Yes Status: Acute (2) Status post total right knee replacement Current Visit: Yes Status: Acute Hospital Course: This is a 51-year-old female who was last seen with complaint of continued right knee pain. The patient has a known history of degenerative arthritis of the right knee and presents to discuss surgical options. After discussion and consideration the patient elects to proceed with total right knee arthroplasty. The patient is seen preoperatively by her primary care physician and cleared for surgery. The patient is admitted to [facility] for total right knee arthroplasty. The procedures performed without complication or sequelae. Pat ient is doing well postoperatively. Vital signs are stable at discharge. Labs are stable at discharge. the patient is ambulating well with walker with minimal assistance. The patient is discharged to home on postop day #1 pending medical clearance. Please see orders and refer to the med rec for accurate list of medications. Patient Condition at Discharge: Good Plan - Discharge Summary Discharge Rx Participant: No New Discharge Prescriptions: New HYDROcodone/APAP 7.5-325MG [[place] 7.5-325] 1 - 2 tab PO Q6H PRN #32 tab PRN Reason: Pain Sennosides [Senokot] 2 tab PO DAILY PRN #60 tablet PRN Reason: Constipation Rivaroxaban [Xarelto] 10 mg PO DAILY #12 tab Cyclobenzaprine [Flexeril] 10 mg PO TID PRN #30 tab PRN Reason: Spasms Ketorolac [Toradol] 10 mg PO Q6HR PRN #20 tab PRN Reason: Pain No Action ALPRAZolam [Xanax] 0.5 mg PO BID PRN PRN Reason: Anxiety EPINEPHrine (Auto Inject) [Epipen] 0.3 mg IM ONCE PRN PRN Reason: Anaphylaxis Albuterol Inhaler [Ventolin Hfa Inhaler] 1 - 2 puff INHALATION QID Montelukast [Singulair] 10 mg PO HS Ergocalciferol [Vitamin D2 (DRISDOL)] 50,000 unit PO WE Cetirizine HCl [Zyrtec] 10 mg PO HS Levothyroxine Sodium [Synthroid] 25 mcg PO DIRECTED Levothyroxine Sodium [Synthroid] 50 mcg PO DIRECTED Calcium Carbonate [Tums] 750 mg PO DIRECTED PRN PRN Reason: Heartburn Fluticasone/Vilanterol [Breo Ellipta 200-25 Mcg Inhaler] 1 inhalation INHALATION QAM Sertraline [Zoloft] 150 mg PO HS Ondansetron Odt [Zofran Odt] 1 - 2 tab PO Q8HR PRN #18 tab PRN Reason: Nausea Fluocinonide 0.05% [Lidex 0.05% cream] 1 applic TOPICAL BID PRN PRN Reason: Eczema Acetaminophen Tab [Tylenol Tab] 500 - 1,000 mg PO Q4-6H PRN PRN Reason: Pain Discharge Medication List ALPRAZolam [Xanax] 0.5 mg PO BID PRN 08/19/14 [History] Albuterol Inhaler [Ventolin Hfa Inhaler] 1 - 2 puff INHALATION QID 08/19/14 [History] Cetirizine HCl [Zyrtec] 10 mg PO HS 08/19/14 [History] EPINEPHrine (Auto Inject) [Epipen] 0.3 mg IM ONCE PRN 08/19/14 [History] Ergocalciferol [Vitamin D2 (DRISDOL)] 50,000 unit PO WE 08/19/14 [History] Montelukast [Singulair] 10 mg PO HS 08/19/14 [History] Levothyroxine Sodium [Synthroid] 25 mcg PO DIRECTED 07/14/17 [History] Levothyroxine Sodium [Synthroid] 50 mcg PO DIRECTED 07/14/17 [History] Calcium Carbonate [Tums] 750 mg PO DIRECTED PRN 12/19/19 [History] Fluticasone/Vilanterol [Breo Ellipta 200-25 Mcg Inhaler] 1 inhalation INHALATION QAM 12/19/19 [History] Sertraline [Zoloft] 150 mg PO HS 12/19/19 [History] Ondansetron Odt [Zofran Odt] 1 - 2 tab PO Q8HR PRN #18 tab 12/25/19 [Rx] Acetaminophen Tab [Tylenol Tab] 500 - 1,000 mg PO Q4-6H PRN 05/20/22 [History] Fluocinonide 0.05% [Lidex 0.05% cream] 1 applic TOPICAL BID PRN 05/20/22 [History] HYDROcodone/APAP 7.5-325MG [[place] 7.5-325] 1 - 2 tab PO Q6H PRN #32 tab 05/24/22 [Rx] Rivaroxaban [Xarelto] 10 mg PO DAILY #12 tab 05/24/22 [Rx] Sennosides [Senokot] 2 tab PO DAILY PRN #60 tablet 05/24/22 [Rx] Cyclobenzaprine [Flexeril] 10 mg PO TID PRN #30 tab 05/25/22 [Rx] Ketorolac [Toradol] 10 mg PO Q6HR PRN #20 tab 05/25/22 [Rx] Follow up Appointment(s)/Referral(s): Adarsh Dyson DO [Doctor of Osteopathic Medicine] - 2 Weeks Activity/Diet/Wound Care/Special Instructions: Weightbearing as tolerated with a walker. CPM 5-6h daily as tolerated. Leave dressing intact. Dressing may be removed by home care nurse or by patient in 7 days. Then change dressing twice daily until follow up. May shower with initial dressing intact and after removal. If dressing become saturated, please remove. Recommend use of compression stockings daily until follow up to help prevent swelling and blood clots. May remove at night before sleeping. Please take Xarelto daily for 12 days postoperatively to help prevent blood clots. Please follow up with [facility] and call with any questions or concerns, . Discharge Disposition: HOME WITH HOME HEALTH SERVICES
[2022-05-25] MEDS ORDERED: RIVAROXABAN 10 MG TAB PO SCH (09:00)
[2022-05-25 09:44] LABS: Basophils % (A) 0 %; Eosinophils # (A) 0.1 k/uL (0-0.7); Eosinophils % (A) 1 %; HCT 37.3 % (34.0-46.0); HGB 12.1 gm/dL (11.4-16.0); Lymphocytes # (A) 1.7 k/uL (1.0-4.8); Lymphocytes % (A) 14 %; MCH 30.4 pg (25.0-35.0); MCHC 32.4 g/dL (31.0-37.0); MCV 93.8 fL (80.0-100.0); Mean Platelet Volume 10.4; Monocytes # (A) 1.2 k/uL (0-1.0); Monocytes % (A) 10 %; Neutrophils # (A) 8.7 k/uL (1.3-7.7); Neutrophils % (A) 73 %; Platelet Count 207 k/uL (150-450); RBC 3.97 m/uL (3.80-5.40); RDW 12.9 % (11.5-15.5); WBC 11.9 k/uL (3.8-10.6)
[2022-05-25] MEDS: SODIUM CHLORIDE 0.9% 1,000 ML IV SCH (13:50)
--- NOTE | 2022-05-25 16:44 | P.PN ---
Subjective Progress Note Date: 05/25/22 Patient is a 51-year-old female came in for the osteoarthritis of the right knee and the underwent right knee surgery. Patient is just out of surgery clinically doing fairly well does have history of asthma. Denied any symptoms at this time except for some pain in the surgical site area. 05/25/2022 Patient is postoperative day #1 for right knee total arthroplasty. Cleared for DC today by surgery. She reports significant improvement to her right knee pain rating about a 5/10 and has been doing her exercises in bed. She denies chest pain, denies shortness of breath. She is passing gas. Blood pressure 113/67. She is afebrile, maintaining saturations on room air. Medically she is cleared for discharge. Review of Systems Constitutional: Denied any fatigue denied any fever. Cardio vascular: denied any chest pain, palpitations Gastrointestinal: denied any nausea, vomiting, diarrhea Pulmonary: Denied any shortness of breath cough Neurologic denied any new focal deficits All inpatient medications were reviewed and appropriate changes in these medications as dictated in the interval history and assessment and plan. PHYSICAL EXAMINATION: GENERAL: The patient is alert and oriented x3, not in any acute distress. Obese HEENT: Pupils are round and equally reacting to light. EOMI. No scleral icterus. No conjunctival pallor. Normocephalic, atraumatic. No pharyngeal erythema. No thyromegaly. CARDIOVASCULAR: S1 and S2 present. No murmurs, rubs, or gallops. PULMONARY: Chest is clear to auscultation, no wheezing or crackles. ABDOMEN: Soft, nontender, nondistended, normoactive bowel sounds. No palpable organomegaly. MUSCULOSKELETAL: Deferred to orthopedic surgery Postoperative right knee dressing intact. EXTREMITIES: No cyanosis, clubbing, or pedal edema. NEUROLOGICAL: Gross neurological examination did not reveal any focal deficits. SKIN: No rashes. Assessment and plan -Right knee arthroplasty pain management and dVT prophylaxis per primary service patient is postoperative day #1. -Asthma without any acute exacerbation patient was resumed on home medications -gastroesophageal reflux disease -Obesity history of sleep apnea patient will restart back on CPAP -History of supraventricular tachycardia -hypothyroidism -Hypertension patient resumed on her home medications GI prophylaxis DVT prophyalxis xarelto per primary Full Code Medically patient is cleared for discharge. Recommend to avoid ibuprofen as patient was taking at home as she is being discharged on Xarelto and Toradol. This was discussed with patient. Follow up with primary care and orthopedics. Continue bowel regimen, increase activity level and continue all other home medications. Thank you for the consultation. The impression and plan of care has been dictated by Natalie Valdes, Nurse Practitioner as directed. Dr. Sam MD I have performed a history and physical examination and medical decision making of this patient, discussed the same with the dictator, and agree with the dictators assessment and plan as written, documented as a scribe. Based on total visit time, I have performed more than 50% of this visit. Objective - Vital Signs Vital signs: Vital Signs Temp 98.0 F 05/25/22 07:49 Pulse 96 05/25/22 07:49 Resp 17 05/25/22 07:49 BP 153/86 05/25/22 07:49 Pulse Ox 91 L 05/25/22 07:49 FiO2 Intake & Output 05/24/22 05/25/22 05/25/22 18:59 06:59 18:59 Intake Total 1300 Output Total 30 Balance 1270 Weight 116.8 kg Intake: IV 1300 Output: Estimated Blood Loss 30 Other: Voiding Method Toilet # Voids 2 1 - Labs CBC & Chem 7: 05/25/22 08:06 Labs: Abnormal Lab Results - Last 24 Hours (Table) 05/25/22 Range/Units 08:06 WBC 11.9 H (3.8-10.6) k/uL Neutrophils # 8.7 H (1.3-7.7) k/uL Monocytes # 1.2 H (0-1.0) k/uL
[2022-05-26] MEDS ORDERED: LEVOTHYROXINE 50 MCG TAB PO SCH (06:30)
== END 2022-05-25 14:23 | disposition home health service (06) ==
LOC: OR 05:40 → 4SSUR 08:42 → OR 05-25 14:23
PROVIDERS: ATTEND Orthopaedic Surgery
DX: M17.11 Unilateral primary osteoarthritis, right knee (principal); G89.18 Other acute postprocedural pain; J45.909 Unspecified asthma, uncomplicated; E03.9 Hypothyroidism, unspecified; E78.5 Hyperlipidemia, unspecified; F10.90 Alcohol use, unspecified, uncomplicated; Z88.8 Allergy status to other drugs, medicaments and biological substances; Z91.040 Latex allergy status; Z90.49 Acquired absence of other specified parts of digestive tract; Z98.890 Other specified postprocedural states; Z88.1 Allergy status to other antibiotic agents; Z83.3 Family history of diabetes mellitus; Z82.49 Family history of ischemic heart disease and other diseases of the circulatory system; Z79.51 Long term (current) use of inhaled steroids; Z79.890 Hormone replacement therapy; Z79.899 Other long term (current) drug therapy
CPT/HCPCS: 94640 ×2; 64999; 64448; 76942; 73560; 27447; C1713; C1776; C1751; J2250; J1100; J0690; J2405; J1170 ×2; J2795; J3010; 85025; 88300; 94760

== ENCOUNTER → 2022-05-31 | Outpatient (CLI) | payer BC ==
[2022-05-31 22:46] LABS: HCT 40.1 % (37.2-46.3); HGB 12.8 g/dL (12.0-15.0); MCH 29.3 pg (27.0-32.0); MCHC 31.9 g/dL (32.0-37.0); MCV 91.8 fL (80.0-97.0); Mean Platelet Volume 11.8 fL (9.5-12.2); NRBC Per 100 WBC 0 /100 WBCS (0.0-0.0); Platelet Count 335 X 10*3/uL (140-440); RBC 4.37 X 10*6/uL (4.10-5.20); RDW 13.4 % (11.5-14.5); WBC 10.21 X 10*3/uL (4.50-10.00)
== END | disposition home or self-care (01) ==
LOC: LABWHC1 15:50
PROVIDERS: ATTEND Family Medicine
DX: D72.829 Elevated white blood cell count, unspecified (principal)
CPT/HCPCS: 36415; 85027

== ENCOUNTER → 2022-11-24 | Outpatient (CLI) | payer BC ==
[2022-11-24 21:11] LABS: Basophils # (A) 0.06 X 10*3/uL (0.00-0.10); Basophils % (A) 0.7 %; Eosinophils # (A) 0.27 X 10*3/uL (0.04-0.35); Eosinophils % (A) 3.2 %; HCT 42.1 % (37.2-46.3); HGB 13.1 d/dL (12.0-15.0); Lymphocytes # (A) 1.42 X 10*3/uL (0.90-5.00); Lymphocytes % (A) 16.6 %; MCH 28.5 pg (27.0-32.0); MCHC 31.1 d/dL (32.0-37.0); MCV 91.7 FL (80.0-97.0); Mean Platelet Volume 12.7 FL (9.5-12.2); Monocytes # (A) 0.93 X 10*3/uL (0.20-1.00); Monocytes % (A) 10.9 %; NRBC Per 100 WBC 0 X 10*3/uL (0.00-0.01); Neutrophils # (A) 5.84 X 10*3/uL (1.80-7.70); Neutrophils % (A) 68.1 %; Platelet Count 201 X 10*3/uL (140-440); RBC 4.59 X 10*6/uL (4.10-5.20); RDW 13.7 % (11.5-14.5); WBC 8.56 X 10*3/uL (4.50-10.00)
[2022-11-24 21:42] LABS: ALT 37 U/L (8-44); AST 29 U/L (13-35); Albumin 4.2 d/dL (3.8-4.9); Albumin/Globulin Ratio 1.75 Ratio (1.60-3.17); Alkaline Phosphatase 100 U/L (41-126); Blood Urea Nitrogen 10.8 mg/dL (9.0-27.0); Calcium 9.7 mg/dL (8.7-10.3); Carbon Dioxide 26.1 mmol/L (21.6-31.8); Chloride 104 mmol/L (96-109); Chol/HDL Ratio 2.37 Ratio; Globulin 2.4 d/dL (1.6-3.3); Glucose 97 mg/dL (70-110); LDL Cholesterol,Calculated 70.2 mg/dL (0.0-131.0); Potassium 4.8 mmol/L (3.5-5.5); Sodium 140 mmol/L (135-145); Total Bilirubin 0.4 mg/dL (0.3-1.2); Total Protein 6.6 d/dL (6.2-8.2)
== END | disposition home or self-care (01) ==
LOC: LABWHC1 11:26
PROVIDERS: ATTEND Family Medicine
DX: Z00.00 Encounter for general adult medical examination without abnormal findings (principal)
CPT/HCPCS: 36415; 80053; 80061; 82306; 84443; 85025

== ENCOUNTER → 2022-11-29 | Outpatient (CLI) | payer BC ==
[2022-12-01 11:21] LABS: Vitamin A 45 ug/dL (38-106)
== END | disposition home or self-care (01) ==
LOC: LABWHC1 15:45
PROVIDERS: ATTEND Family Medicine
DX: L60.3 Nail dystrophy (principal)
CPT/HCPCS: 36415; 82607; 82746; 84590; 84630

== ENCOUNTER → 2023-02-07 | Outpatient (CLI) | payer BC | END | disposition home or self-care (01) | LOC: LABWHC1 14:01 | PROVIDERS: ATTEND Family Medicine | DX: Z53.9 Procedure and treatment not carried out, unspecified reason (principal) ==

== ENCOUNTER 2023-03-09 17:27 | Emergency (ER) | payer BC ==
[2023-03-09 17:42] VITALS: TEMP 97
--- NOTE | 2023-03-09 19:45 | ED ---
General Adult HPI - General Chief complaint: Upper Respiratory Infection Stated complaint: chest pain Time Seen by Provider: 03/09/23 19:20 Source: patient Mode of arrival: wheelchair Limitations: no limitations - History of Present Illness Initial comments: This patient is a 52-year-old woman who presents here from an urgent care clinic. The patient states she was sent here to have evaluation for possible congestive heart failure, after she had an x-ray there that showed some reported vascular congestion. The patient states she has been having some cough and congestion going back to approximately February 25. The patient had been on a cruise in [place] and she was exposed to [place] virus. She states in fact that her did test positive. She had similar upper respiratory congestion, cough, but has tested negative in number of times. When she returned here she was seen at the urgent care, had a course of steroid and azithromycin which she finished. She is not feeling any better so she return to the clinic where she had the x-ray today. Patient denies history of chest pain. No history of known cardiac disease. Onset/Timin -: week(s) Location: chest Severity scale (1-10): 0 Consistency: constant Improves with: none Worsens with: none Associated Symptoms: cough, other (Ingestion) Treatments Prior to Arrival: other (See above) - Related Data Home Medications Medication Instructions Recorded Confirmed Albuterol Inhaler [Ventolin Hfa 1 - 2 puff INHALATION RT-QID PRN 08/19/14 03/09/23 Inhaler] Cetirizine HCl [Zyrtec] 10 mg PO HS 08/19/14 03/09/23 EPINEPHrine (Auto Inject) [Epipen] 0.3 mg IM ONCE PRN 08/19/14 03/09/23 Ergocalciferol [Vitamin D2 1,250 mcg PO WE 08/19/14 03/09/23 (DRISDOL)] Montelukast [Singulair] 10 mg PO HS 08/19/14 03/09/23 Levothyroxine Sodium [Synthroid] 25 mcg PO Q48H 07/14/17 03/09/23 Levothyroxine Sodium [Synthroid] 50 mcg PO Q48H 07/14/17 03/09/23 Fluticasone/Vilanterol [Breo 1 puff INHALATION RT-DAILY 12/19/19 03/09/23 Ellipta 200-25 Mcg Inhaler] Fluticasone Nasal [place] [Flonase 1 spr EA NOSTRIL BID PRN 07/23/22 03/09/23 Nasal B[place]in] Omeprazole [PriLOSEC] 20 mg PO DAILY 07/23/22 03/09/23 Rosuvastatin [Crestor] 20 mg PO HS 07/23/22 03/09/23 Sertraline [Zoloft] 150 mg PO HS 07/23/22 03/09/23 guaiFENesin [Mucinex] 1,200 mg PO BID PRN 07/23/22 03/09/23 Ascorbic Acid [Vitamin C] 500 mg PO DAILY 03/09/23 03/09/23 Aspirin EC [Ecotrin Low Dose] 81 mg PO HS 03/09/23 03/09/23 Cholecalciferol [Vitamin D3 (25 100 mcg PO HS 03/09/23 03/09/23 Mcg = 1000 Iu)] Multivit-Min/FA/Lycopen/Lutein 1 tab PO HS 03/09/23 03/09/23 [Centrum Silver Tablet] Zinc Gluconate [Zinc] 50 mg PO HS 03/09/23 03/09/23 metroNIDAZOLE 0.75% CREAM 1 applic TOPICAL HS PRN 03/09/23 03/09/23 [Metrocream 0.75%] Previous Rx's Medication Instructions Recorded Albuterol Inhaler [Ventolin Hfa 2 puff INHALATION Q4HR PRN #8 gm 03/09/23 Inhaler] predniSONE [Deltasone] 20 mg PO BID #8 tab 03/09/23 Allergies Allergy/AdvReac Type Severity Reaction Status Date / Time adhesive Allergy hives Verified 03/09/23 22:09 almond Allergy Anaphylaxis Verified 03/09/23 22:09 latex Allergy rash, Verified 03/09/23 22:09 large hand swelling neomycin sulfate Allergy Rash/Hives Verified 03/09/23 22:09 [From Neosporin ([id number])] nut - unspecified Allergy Anaphylaxis Verified 03/09/23 22:09 peanut Allergy Anaphylaxis Verified 03/09/23 22:09 tree nut [Nut] Allergy Anaphylaxis Verified 03/09/23 22:09 pseudoephedrine AdvReac Rapid Verified 03/09/23 22:09 Heart Rate Nuts Allergy Anaphylaxis Uncoded 03/09/23 17:33 Review of Systems ROS Statement: Those systems with pertinent positive or pertinent negative responses have been documented in the HPI. ROS Other: All systems not noted in ROS Statement are negative. Constitutional: Denies: fever, chills, weakness ENT: Reports: throat pain, congestion Respiratory: Reports: cough, wheezes. Denies: dyspnea, hemoptysis, stridor Cardiovascular: Denies: chest pain, palpitations, dyspnea on exertion, orthopnea, edema, syncope Gastrointestinal: Denies: abdominal pain, nausea, vomiting, diarrhea Genitourinary: Denies: dysuria, hematuria Musculoskeletal: Denies: back pain Skin: Denies: rash Neurological: Denies: headache, weakness Past Medical History Past Medical History: Asthma, GERD/Reflux, Osteoarthritis (OA), Pneumonia, Skin Disorder, Supraventricular Tachycardia (SVT), Thyroid Disorder Additional Past Medical History / Comment(s): eczema, PSVT, ulcer , hiatal hernia, IUD, covid [id number] History of Any Multi-Drug Resistant Organisms: ESBL Date of last positivie culture/infection: 07/14/17 MDRO Source:: ESBL-URINE Past Surgical History: Cholecystectomy, Joint Replacement, Orthopedic Surgery Additional Past Surgical History / Comment(s): bilateral knee arthroscopy, bilateral lasik eye surgery, left knee replacement Past Anesthesia/Blood Transfusion Reactions: Previous Problems w/ Anesthesia, Motion Sickness Additional Past Anesthesia/Blood Transfusion Reaction / Comment(s): SLOW TO COME OUT OF ANESTHESIA, "loopy after" Past Psychological History: Anxiety, Depression Smoking Status: Never smoker Past Alcohol Use History: Rare Past Drug Use History: None Reported - Past Family History Mother Family Medical History: Pulmonary Embolus General Exam Limitations: no limitations General appearance: alert, in no apparent distress Head exam: Present: atraumatic, normocephalic Eye exam: Present: normal appearance. Absent: scleral icterus, conjunctival injection ENT exam: Present: normal oropharynx Neck exam: Present: normal inspection, full ROM. Absent: meningismus Respiratory exam: Present: wheezes. Absent: respiratory distress, rales, rhonchi, stridor, accessory muscle use, decreased breath sounds Cardiovascular Exam: Present: regular rate, normal rhythm, normal heart sounds. Absent: systolic murmur, diastolic murmur, rubs, gallop GI/Abdominal exam: Present: soft. Absent: distended, tenderness, guarding, rebound, rigid, mass Extremities exam: Present: normal inspection, normal capillary refill. Absent: pedal edema, calf tenderness Back exam: Present: normal inspection. Absent: CVA tenderness (R), CVA tende rness (L) Neurological exam: Present: alert Skin exam: Present: warm, dry, intact, normal color. Absent: rash Course Vital Signs 03/09/23 03/09/23 03/09/23 17:33 20:00 21:00 Temperature 97.0 F L Pulse Rate 75 70 70 Respiratory 18 18 19 Rate Blood Pressure 167/87 131/70 O2 Sat by Pulse 96 98 97 Oximetry 03/09/23 03/09/23 21:30 22:25 Temperature Pulse Rate 65 65 Respiratory 17 17 Rate Blood Pressure 142/80 109/72 O2 Sat by Pulse 96 95 Oximetry EKG Findings - EKG Results: EKG: interpreted by ERMD, sinus rhythm (Rate 66 bpm), normal axis, normal ST/T - [place], [place], Hypertrophy, ST Abn: QRS axis and voltage: low voltage (<0.5 MV total QRS and <1.0 MV in each precordial lead) Medical Decision Making - Medical Decision Making The patient had chest x-ray which I interpreted as negative for acute infiltrate, pneumothorax, congestive heart failure Patient is 52-year-old woman who clinically does appear to have bronchitis. The workup here includes a BNP that is normal for patient's age, the chest x-ray does not show congestive heart failure here. Discussed the results and further treatment recommendations as well as return parameters and follow-up. The patient did have previous improvement while she was taking the steroid but then at the end of that had recurrence of symptoms, therefore will give another brief course of steroid and have patient follow-up Was pt. sent in by a medical professional or institution (, PA, PREPARATION CENTER COORDINATOR, urgent care, hospital, or retirement...) When possible be specific @ -[No] Did you speak to anyone other than the patient for history (EMS, parent, family, police, friend...)? What history was obtained from this source @ - did contribute history Did you review nursing and triage notes (agree or disagree)? Why? @ -[I reviewed and agree with nursing and triage notes] Were old charts reviewed (outside hosp., previous admission, EMS record, old EKG, old radiological studies, urgent care reports/EKG's, retirement records)? Report findings @ -[No old charts were reviewed] Differential Diagnosis (chest pain, altered mental status, abdominal pain women, abdominal pain men, vaginal bleeding, weakness, fever, dyspnea, syncope, headache, dizziness, GI bleed, back pain, seizure, CVA, palpatations, mental health, musculoskeletal)? @ -[Differential Dyspnea: Coronary syndrome, arrhythmia, tamponade, asthma, COPD, pulmonary embolism, pneumonia, pneumothorax, pulmonary effusion, anaphylaxis, diabetic ketoacidosis, flailed chest, pulmonary contusion, diaphragmatic rupture, anemia, neuromuscular, this is not meant to be an all-inclusive list. EKG interpreted by me (3pts min.). @ -[As above] X-rays interpreted by me (1pt min.). @ -[I interpreted as above CT interpreted by me (1pt min.). @ -[None done] U/S interpreted by me (1pt. min.). @ -[None done] What testing was considered but not performed or refused? (CT, X-rays, U/S, labs)? Why? @ -[None] What meds were considered but not given or refused? Why? @ -[None] Did you discuss the management of the patient with other professionals (pr ofessionals i.e. , PA, PREPARATION CENTER COORDINATOR, lab, RT, psych nurse, high school social science teacher, barmaid, teacher, trust officer, nurse outreach case manager)? Give summary @ -[No] Was smoking cessation discussed for >3mins.? @ -[No] Was critical care preformed (if so, how long)? @ -[No] Were there social determinants of health that impacted care today? How? (Homelessness, low income, unemployed, alcoholism, drug addiction, tra nsportation, low edu. Level, literacy, decrease access to med. care, halfway, rehab)? @ -[No] Was there de-escalation of care discussed even if they declined (Discuss DNR or withdrawal of care, Hospice)? DNR status @ -[No] What co-morbidities impacted this encounter? (DM, HTN, Smoking, COPD, CAD, Cancer, CVA, ARF, Chemo, Hep., AIDS, mental health diagnosis, sleep apnea, morbid obesity)? @ -[None] Was patient admitted / discharged? Hospital course, mention meds given and route, prescriptions, significant lab abnormalities, going to OR and other pertinent info. @ -[Discharged, see above Undiagnosed new problem with uncertain prognosis? @ -[No] Drug Therapy requiring intensive monitoring for toxicity (Heparin, Nitro, Insulin, Cardizem)? @ -[No] Were any procedures done? @ -[No] Diagnosis/symptom? @ -[default] Acute, or Chronic, or Acute on Chronic? @ -[Acute bronchitis Uncomplicated (without systemic symptoms) or Complicated (systemic symptoms)? @ -[Uncomplicated Side effects of treatment? @ -[No] Exacerbation, Progression, or Severe Exacerbation? @ -[No] Poses a threat to life or bodily function? How? (Chest pain, [place], [place], pneumonia, PE, COPD, DKA, ARF, appy, cholecystitis, CVA, Diverticulitis, Homicidal, Suicidal, threat to staff... and all critical care pts) @ -[No] - Lab Data Result diagrams: 03/09/23 19:49 03/09/23 19:49 Lab Results 03/09/23 03/09/23 03/09/23 Range/Units 19:36 19:49 19:49 WBC 14.7 H (3.8-10.6) k/uL RBC 4.88 (3.80-5.40) m/uL Hgb 14.6 (11.4-16.0) gm/dL Hct 44.9 (34.0-46.0) % MCV 92.0 (80.0-100.0) fL MCH 30.0 (25.0-35.0) pg MCHC 32.5 (31.0-37.0) g/dL RDW 14.0 (11.5-15.5) % Plt Count 244 (150-450) k/uL MPV 9.3 Neutrophils % 66 % Lymphocytes % 22 % Monocytes % 7 % Eosinophils % 4 % Basophils % 0 % Neutrophils # 9.7 H (1.3-7.7) k/uL Lymphocytes # 3.2 (1.0-4.8) k/uL Monocytes # 1.1 H (0-1.0) k/uL Eosinophils # 0.5 (0-0.7) k/uL Basophils # 0.1 (0-0.2) k/uL PT 9.9 (9.0-12.0) sec INR 0.9 (<1.2) APTT 22.0 (22.0-30.0) sec D-Dimer 0.27 (<0.60) mg/L FEU Sodium (137-145) mmol/L Potassium (3.5-5.1) mmol/L Chloride (98-107) mmol/L Carbon Dioxide (22-30) mmol/L Anion Gap mmol/L BUN (7-17) mg/dL Creatinine (0.52-1.04) mg/dL Est GFR (CKD-EPI)AfAm (>60 ml/min/1.73 sqM) Est GFR (CKD-EPI)NonAf (>60 ml/min/1.73 sqM) Glucose (74-99) mg/dL Plasma Lactic Acid Ted (0.7-2.0) mmol/L Calcium (8.4-10.2) mg/dL Total Bilirubin (0.2-1.3) mg/dL AST (14-36) U/L ALT (4-34) U/L Alkaline Phosphatase (38-126) U/L Troponin I (0.000-0.034) ng/mL NT-Pro-B Natriuret Pep pg/mL Total Protein (6.3-8.2) g/dL Albumin (3.5-5.0) g/dL Coronavirus (PCR) Not Detected (Not Detectd) 03/09/23 03/09/23 03/09/23 Range/Units 19:49 19:49 19:49 WBC (3.8-10.6) k/uL RBC (3.80-5.40) m/uL Hgb (11.4-16.0) gm/dL Hct (34.0-46.0) % MCV (80.0-100.0) fL MCH (25.0-35.0) pg MCHC (31.0-37.0) g/dL RDW (11.5-15.5) % Plt Count (150-450) k/uL MPV Neutrophils % % Lymphocytes % % Monocytes % % Eosinophils % % Basophils % % Neutrophils # (1.3-7.7) k/uL Lymphocytes # (1.0-4.8) k/uL Monocytes # (0-1.0) k/uL Eosinophils # (0-0.7) k/uL Basophils # (0-0.2) k/uL PT (9.0-12.0) sec INR (<1.2) APTT (22.0-30.0) sec D-Dimer (<0.60) mg/L FEU Sodium 138 (137-145) mmol/L Potassium 4.0 (3.5-5.1) mmol/L Chloride 103 (98-107) mmol/L Carbon Dioxide 26 (22-30) mmol/L Anion Gap 9 mmol/L BUN 17 (7-17) mg/dL Creatinine 0.58 (0.52-1.04) mg/dL Est GFR (CKD-EPI)AfAm >90 (>60 ml/min/1.73 sqM) Est GFR (CKD-EPI)NonAf >90 (>60 ml/min/1.73 sqM) Glucose 87 (74-99) mg/dL Plasma Lactic Acid Ted 0.9 (0.7-2.0) mmol/L Calcium 9.3 (8.4-10.2) mg/dL Total Bilirubin 0.5 (0.2-1.3) mg/dL AST 24 (14-36) U/L ALT 27 (4-34) U/L Alkaline Phosphatase 94 (38-126) U/L Troponin I <0.012 (0.000-0.034) ng/mL NT-Pro-B Natriuret Pep 244 pg/mL Total Protein 7.3 (6.3-8.2) g/dL Albumin 4.2 (3.5-5.0) g/dL Coronavirus (PCR) (Not Detectd) Disposition Clinical Impression: Bronchitis Disposition: HOME SELF-CARE Condition: Good Instructions (If sedation given, give patient instructions): Acute Bronchitis (ED) Prescriptions: predniSONE [Deltasone] 20 mg PO BID #8 tab Albuterol Inhaler [Ventolin Hfa Inhaler] 2 puff INHALATION Q4HR PRN #8 gm PRN Reason: Wheezing Is patient prescribed a controlled substance at d/c from ED?: No Referrals: Raquel Haas MD [Primary Care Provider] - 1-2 days
[2023-03-09 20:10] LABS: Basophils # (A) 0.1 k/uL (0-0.2); Basophils % (A) 0 %; Eosinophils # (A) 0.5 k/uL (0-0.7); Eosinophils % (A) 4 %; HCT 44.9 % (34.0-46.0); HGB 14.6 gm/dL (11.4-16.0); Lymphocytes # (A) 3.2 k/uL (1.0-4.8); Lymphocytes % (A) 22 %; MCHC 32.5 g/dL (31.0-37.0); Mean Platelet Volume 9.3; Monocytes # (A) 1.1 k/uL (0-1.0); Monocytes % (A) 7 %; Neutrophils # (A) 9.7 k/uL (1.3-7.7); Neutrophils % (A) 66 %; Platelet Count 244 k/uL (150-450); RBC 4.88 m/uL (3.80-5.40); WBC 14.7 k/uL (3.8-10.6)
[2023-03-09 20:26] LABS: INR 0.9 (<1.2); Prothrombin Time 9.9 sec (9.0-12.0)
[2023-03-09 20:34] LABS: NT-Pro-B-Type Natriuretic Pept 244 pg/mL
[2023-03-09 20:37] LABS: ALT 27 U/L (4-34); AST 24 U/L (14-36); African American GFR (CKD) >90 (>60 ml/min/1.73 sqM); Albumin 4.2 g/dL (3.5-5.0); Alkaline Phosphatase 94 U/L (38-126); Anion Gap 9 mmol/L; Blood Urea Nitrogen 17 mg/dL (7-17); Calcium 9.3 mg/dL (8.4-10.2); Carbon Dioxide 26 mmol/L (22-30); Chloride 103 mmol/L (98-107); Glucose 87 mg/dL (74-99); Non-African American GFR(CKD) >90 (>60 ml/min/1.73 sqM); Sodium 138 mmol/L (137-145); Total Bilirubin 0.5 mg/dL (0.2-1.3); Total Protein 7.3 g/dL (6.3-8.2)
--- NOTE | 2023-03-09 20:51 | XR ---
EXAMINATION: XR chest 2V: 03/09/2023 8:23 PM CLINICAL INDICATION: difficulty breathing TECHNIQUE: Departmental protocol COMPARISON: 07/23/2022 FINDINGS: The lungs are clear. The pleural spaces are negative. The cardiac silhouette is not enlarged. The remainder of the mediastinal silhouette is unremarkable. The skeletal structures and soft tissues are negative for acute findings. IMPRESSION: No acute process.
[2023-03-09 22:07] VITALS: PULSE 65; RESP 17
[2023-03-09] MEDS ORDERED: predniSONE 20 MG TAB PO STA (22:11)
[2023-03-09 22:28] VITALS: BP 109/72
== END 2023-03-09 22:26 | disposition home or self-care (01) ==
LOC: EC 17:27
DX: J45.909 Unspecified asthma, uncomplicated (principal); K21.9 Gastro-esophageal reflux disease without esophagitis; E07.9 Disorder of thyroid, unspecified; F41.9 Anxiety disorder, unspecified; F32.A Depression, unspecified; Z79.82 Long term (current) use of aspirin; Z20.822 Contact with and (suspected) exposure to COVID-19; Z79.890 Hormone replacement therapy; Z79.899 Other long term (current) drug therapy; Z86.16 Personal history of COVID-19; Z91.040 Latex allergy status; Z91.09 Other allergy status, other than to drugs and biological substances; Z88.8 Allergy status to other drugs, medicaments and biological substances
CPT/HCPCS: 36415; 93005; 85379; 83880; 80053; 83605; 84484; 85025; 85610; 85730; 87635; 71046; 99285; J7512

== ENCOUNTER → 2023-05-04 | Outpatient (CLI) | payer BC ==
--- NOTE | 2023-05-05 12:16 | MM ---
Reason for Exam: Screening (asymptomatic). Last screening mammogram was performed 12 month(s) ago. Patient History: Menarche at age 11. Patient has no children. Hormonal Contraceptives, starting at age 19 for 16 years, 6 months. 11/16/2011, Benign Core Biopsy on the left side. Paternal grandmother had breast cancer, age 40. Paternal aunt had breast cancer, age 60. Paternal aunt had breast cancer, age 83. Last menstrual period: 03/13/2023 Risk Values: Sarah 5 year model risk: 1.4%. NCI Lifetime model risk: 11.0%. Prior Study Comparison: 04/21/2020 Bilateral Screening Mammogram, [facility]. 04/27/2021 Bilateral Screening Mammogram, [facility]. 05/02/2022 Bilateral MG 3D screening mammo w/cad, [facility]. Tissue Density: The breast tissue is almost entirely fat. Findings: Analyzed By CAD. Left breast biopsy clip. There is no suspicious group of microcalcifications or new suspicious mass. Overall Assessment: Negative, BI-RAD 1 Management: Screening Mammogram of both breasts in [address] [facility] will attempt to contact patient to return for supplemental views and ultrasound if indicated. Patient should continue monthly self-breast exams. A clinical breast exam by your physician is recommended on an annual basis. This exam should not preclude additional follow-up of suspicious palpable abnormalities. Note on Sarah scores and lifetime risk: 1. A Sarah score greater than 3% is considered moderate risk. If this is the case, consider specialist referral to assess eligibility for a risk reducing agent. 2. If overall lifetime risk for the development of breast cancer is 20% or higher, the patient may qualify for future screening with alternating mammogram and breast MRI. Electronically signed and approved by: Bennett Chamberlain DO
== END | disposition home or self-care (01) ==
LOC: RADMAMWWP 16:24
PROVIDERS: ATTEND Obstetrics & Gynecology
DX: Z12.31 Encounter for screening mammogram for malignant neoplasm of breast (principal); Z80.3 Family history of malignant neoplasm of breast
CPT/HCPCS: 77063; 77067

== ENCOUNTER → 2023-08-10 | Outpatient (CLI) | payer BC ==
--- NOTE | 2023-08-10 12:38 | CT ---
EXAMINATION: CT ABDOMEN AND PELVIS WITH IV CONTRAST DATE OF EXAMINATION: 08/10/2023. COMPARISON: 01/28/2023.. INDICATION: Reevaluate lymph nodes. PROCEDURE: Axial CT of the abdomen and pelvis was performed with contrast and sagittal and coronal reformatted images were performed. CT dose lowering techniques were used, to include: automated expos ure control, adjustment for patient size, and/or use of iterative reconstruction. FINDINGS: LOWER CHEST : The visualized lung bases are clear. There are no pleural or pericardial effusions. ABDOMEN: Liver and Biliary system: Normal. Adrenal glands: Normal. Kidneys and ureters: Normal. Spleen: Normal. Pancreas: Normal. Gallbladder: The gallbladder is surgically absent. Lymph nodes, Peritoneum and mesentery: There is no mesenteric or retroperitoneal lymphadenopathy. Gastrointestinal tract: There are no dilated loops of bowel or free intraperitoneal air. The appe ndix is normal. There is a small sliding hiatal hernia. Aorta/IVC: No aortic aneurysm. IVC normal. Abdominal wall: Normal. PELVIS: Fluid: There is no free fluid in the pelvis. Lymph Nodes: There is no pelvic or inguinal lymphadenopathy.. Urinary bladder: Normal. BONES: There are no osseous destructive lesions.. ADDITIONAL SIGNIFICANT FINDINGS: None. IMPRESSION: 1. No acute process within the abdomen or pelvis. 2. No adenopathy. 3. Small hiatal hernia.
== END | disposition home or self-care (01) ==
LOC: RADCTMAIN 10:18
PROVIDERS: ATTEND Family Medicine
DX: K44.9 Diaphragmatic hernia without obstruction or gangrene (principal); R59.0 Localized enlarged lymph nodes
CPT/HCPCS: 74177; Q9967

== ENCOUNTER → 2024-04-08 | Outpatient (CLI) | payer OTHER ==
[2024-04-08 14:59] LABS: Basophils # (A) 0.08 X 10*3/uL (0.00-0.10); Basophils % (A) 0.9 %; Eosinophils # (A) 0.29 X 10*3/uL (0.04-0.35); Eosinophils % (A) 3.3 %; HCT 43.2 % (37.2-46.3); HGB 13.6 g/dL (12.0-15.0); Lymphocytes % (A) 19.1 %; MCH 28.9 pg (27.0-32.0); MCHC 31.5 g/dL (32.0-37.0); MCV 91.9 FL (80.0-97.0); Mean Platelet Volume 12.4 FL (9.5-12.2); Monocytes # (A) 0.85 X 10*3/uL (0.20-1.00); Monocytes % (A) 9.5 %; NRBC Per 100 WBC 0 X 10*3/uL (0.00-0.01); Neutrophils # (A) 5.95 X 10*3/uL (1.80-7.70); Neutrophils % (A) 66.6 %; Platelet Count 198 X 10*3/uL (140-440); RDW 13.6 % (11.5-14.5); WBC 8.92 X 10*3/uL (4.50-10.00)
[2024-04-08 15:13] LABS: ALT 28 U/L (8-44); AST 24 U/L (13-35); Albumin 4.3 g/dL (3.8-4.9); Albumin/Globulin Ratio 1.87 Ratio (1.60-3.17); Alkaline Phosphatase 92 U/L (41-126); BUN/Creat Ratio 16.86 Ratio (12.00-20.00); Blood Urea Nitrogen 11.8 mg/dL (9.0-27.0); Calcium 9.6 mg/dL (8.7-10.3); Carbon Dioxide 23.2 mmol/L (21.6-31.8); Chloride 105 mmol/L (96-109); Chol/HDL Ratio 2.29 Ratio; Globulin 2.3 g/dL (1.6-3.3); Glucose 111 mg/dL (70-110); LDL Cholesterol,Calculated 68.8 mg/dL (0.0-131.0); Potassium 4.5 mmol/L (3.5-5.5); Sodium 140 mmol/L (135-145); Total Bilirubin 0.2 mg/dL (0.3-1.2); Total Protein 6.6 g/dL (6.2-8.2); VLDL Calculation 17.28 mg/dL (5.00-40.00)
== END | disposition home or self-care (01) ==
LOC: LABWHC1 09:38
PROVIDERS: ATTEND Internal Medicine Cardiovascular Disease
DX: I10 Essential (primary) hypertension (principal); J44.9 Chronic obstructive pulmonary disease, unspecified; E66.9 Obesity, unspecified; E03.9 Hypothyroidism, unspecified; M15.1 Heberden's nodes (with arthropathy); R53.83 Other fatigue; Z82.49 Family history of ischemic heart disease and other diseases of the circulatory system
CPT/HCPCS: 36415; 80053; 80061; 83036; 84436; 84439; 84443; 84479; 85025

== ENCOUNTER → 2024-05-14 | Outpatient (CLI) | payer OTHER ==
--- NOTE | 2024-05-14 09:51 | MM ---
Reason for Exam: Screening (asymptomatic). Last mammogram was performed 1 year(s) and 1 month(s) ago. Patient History: Menarche at age 11. Patient has no children. Hormonal Contraceptives, starting at age 19 for 16 years, 6 months. 11/16/2011, Benign Core Biopsy on the left side. Paternal grandmother had breast cancer, age 40. Paternal aunt had breast cancer, age 60. Paternal aunt had breast cancer, age 83. Risk Values: Sarah 5 year model risk: 1.5%. NCI Lifetime model risk: 10.8%. Prior Study Comparison: 04/27/2021 Bilateral Screening Mammogram, [facility]. 05/02/2022 Bilateral MG 3D screening mammo w/cad, [facility]. 05/04/2023 Bilateral MG 3D screening mammo w/cad, [facility]. Tissue Density: The breasts are almost entirely fatty. Findings: Analyzed By CAD. Right breast: There is no suspicious group of microcalcifications or new suspicious mass. Left breast: There is no suspicious group of microcalcifications or new suspicious mass. Benign-appearing calcifications left breast. Overall Assessment: Benign, BI-RAD 2 Management: Screening Mammogram of both breasts in [address] [facility] will attempt to contact patient to return for supplemental views and ultrasound if indicated. Patient should continue monthly self-breast exams. A clinical breast exam by your physician is recommended on an annual basis. This exam should not preclude additional follow-up of suspicious palpable abnormalities. Note on Sarah scores and lifetime risk: 1. A Sarah score greater than 3% is considered moderate risk. If this is the case, consider specialist referral to assess eligibility for a risk reducing agent. 2. If overall lifetime risk for the development of breast cancer is 20% or higher, the patient may qualify for future screening with alternating mammogram and breast MRI. [facility], , 05/14/2024 9:48 AM. Electronically signed and approved by: Bennett Chamberlain DO
== END | disposition home or self-care (01) ==
LOC: RADMAMWWP 07:21
PROVIDERS: ATTEND Obstetrics & Gynecology
DX: Z12.31 Encounter for screening mammogram for malignant neoplasm of breast (principal); Z80.3 Family history of malignant neoplasm of breast; R92.313 Mammographic fatty tissue density, bilateral breasts
CPT/HCPCS: 77063; 77067

== ENCOUNTER → 2024-12-27 | Outpatient (CLI) | payer OTHER ==
[2024-12-27 15:43] LABS: Basophils # (A) 0.07 X 10*3/uL (0.00-0.10); Basophils % (A) 1.0 %; Eosinophils # (A) 0.24 X 10*3/uL (0.04-0.35); Eosinophils % (A) 3.4 %; HCT 41.9 % (37.2-46.3); HGB 13.0 g/dL (12.0-15.0); Immature Grans, Automated 0.40 %; Lymphocytes # (A) 1.85 X 10*3/uL (0.90-5.00); Lymphocytes % (A) 26.1 %; MCH 29.0 pg (27.0-32.0); MCHC 31.0 g/dL (32.0-37.0); MCV 93.5 FL (80.0-97.0); Monocytes # (A) 0.73 X 10*3/uL (0.20-1.00); Monocytes % (A) 10.3 %; NRBC Per 100 WBC 0 X 10*3/uL (0.00-0.01); Neutrophils # (A) 4.17 X 10*3/uL (1.80-7.70); Neutrophils % (A) 58.8 %; Platelet Count 206 X 10*3/uL (140-440); RBC 4.48 X 10*6/uL (4.10-5.20); RDW 13.6 % (11.5-14.5); WBC 7.09 X 10*3/uL (4.50-10.00)
[2024-12-27 16:09] LABS: ALT 35 U/L (8-44); AST 29 U/L (13-35); Albumin 4.2 g/dL (3.8-4.9); Albumin/Globulin Ratio 1.91 Ratio (1.60-3.17); Alkaline Phosphatase 85 U/L (41-126); Anion Gap 12.00 mmol/L (4.00-12.00); BUN/Creat Ratio 16.12 Ratio (12.00-20.00); Blood Urea Nitrogen 12.9 mg/dL (9.0-27.0); Calcium 9.7 mg/dL (8.7-10.3); Carbon Dioxide 24.0 mmol/L (21.6-31.8); Chloride 104 mmol/L (96-109); Cholesterol 155.00 mg/dL (0.00-200.00); Globulin 2.2 g/dL (1.6-3.3); Glucose 107 mg/dL (70-110); HDL Cholesterol 63.60 mg/dL (40.00-60.00); LDL Cholesterol,Calculated 71.9 mg/dL (0.0-131.0); Potassium 4.9 mmol/L (3.5-5.5); Sodium 140 mmol/L (135-145); T4, Free (Free Thyroxine) 0.96 ng/dL (0.80-1.80); Total Protein 6.4 g/dL (6.2-8.2); Triglycerides 97.50 mg/dL (0.00-149.00); VLDL Calculation 19.50 mg/dL (5.00-40.00)
[2024-12-28 04:31] LABS: B/A1 Ratio 0.34 Ratio (0.30 - 0.90)
== END | disposition home or self-care (01) ==
LOC: LABWHC1 09:52
PROVIDERS: ATTEND Family Medicine
DX: Z00.00 Encounter for general adult medical examination without abnormal findings (principal); Z13.1 Encounter for screening for diabetes mellitus; E78.5 Hyperlipidemia, unspecified; R07.9 Chest pain, unspecified
CPT/HCPCS: 36415; 80053; 80061; 82172; 83036; 83721; 84439; 84443; 85025